=== PATIENT | male | born 1950 | race Caucasian/White ===

== ENCOUNTER 2017-02-17 13:28 | Inpatient (IN) | payer OTHER, MEDICARE ==
[~2017-02-17] VITALS: Ht 177.8 cm; Wt 101.9 kg
[2017-02-17 14:16] VITALS: PULSE 99
[2017-02-17] MEDS ORDERED: Polyethylene Glycol (PEG) 17 Gm Powder PO PRN (14:55)
[2017-02-17] MEDS ORDERED: Alum-Mag Hydrox-Simeth 30 mL Suspension PO PRN (14:55)
[2017-02-17] MEDS ORDERED: Ondansetron 2 mg/mL 2 mL Inj IVPUSH PRN (14:55)
[2017-02-17] MEDS ORDERED: MULT1CAP33 PO (15:25)
[2017-02-17 15:30] VITALS: BP 134/78; PULSE 95; RESP 16; O2SAT 97
[2017-02-17 15:40] LABS: INR 1.32 ratio
[2017-02-17 15:46] LABS: TROPONIN T < 0.010 ug/L (0.0-0.011)
[2017-02-17 16:12] LABS: Lipase 20 U/L (13-60)
[2017-02-17] MEDS: Sodium Chloride LOK Flush 10 mL Syringe IVFLUSH SCH ×2 (16:38→23:23)
--- NOTE | 2017-02-17 16:51 | DRSVH ---
PROCEDURE: X-RAY CHEST, TWO VIEWS ([id number]) INDICATIONS: Chest pain. TECHNIQUE: Two views of the chest were acquired. COMPARISON: None. FINDINGS: Surgical Changes and Devices: None. Lungs and Pleura: No pleural effusions or pneumothorax. Lungs are clear. Mediastinum: Mediastinal contours are normal. Heart size is normal. Hilar calcified nodes present. Bones and Chest Wall: No suspicious bony abnormalities. Soft tissues appear unremarkable. IMPRESSION: 1. No acute cardiopulmonary disease. 2. Hilar calcifications present, related to remote granulomatous disease. Dictated by: Quincy Morales [facility] Interpreted: Savannah Batres MD on 02/17/2017 at 15:58 Transcribed by: GRACIELA on 02/17/2017 at 19:51 Approved by: Savannah Batres MD, PhD on 02/17/2017 at 18:48
--- NOTE | 2017-02-17 17:28 | PCM.CHPMED ---
Subjective Date of Service: Feb 17, 2017 Primary Physician: Admitting Physician: Tamiko Foster DO Primary Care Physician: Qiana Attending Physician: Tamiko Foster DO Admit Status: From the Emergency Department Chief Complaint: Chief Complaint: Reason for consultation: thrombosis of portal veins History of Present Illness: GASTROENTEROLOGY CONSULTATION: Mr. Abhijeet Sanchez is a pleasant 66 yo man with no significant PMH who was sent to the hospital by for thrombosis of portal veins. He reports 1-week history of nausea, poor appetite, and generalized weakness. He denies any vomiting, hematemesis, melena, hematochezia, CP, SOB, dizziness, headach, fever , or chills. Patient states that he probably lost about 10 lbs in the last week due to the poor appetite. He has regular BM with darker brown stool, but never black or bloody. Patient also admits to mild RUQ abdominal pain that is dull and nonradiating. The abdominal pain has been intermittent for the last 2 months , but he does not think much of it. No aggravating or relieving factor. He has never experienced anything like this in the past. Patient states that he has been pretty healthy and has not seen any doctor for years. He denies history of smoking or drug use. He drinks 1-2 beers per week. He takes Advil occasionally for ache and pain, but not on a regular basis. Patient has never has any surgery or colonoscopy. He does not take any medication other than a multivitamin daily. No recent blood works until today. He denies any family history of liver/colon/gastric cancer. No recent travel or trauma. At the urgent care visit today, patient had an abdominal U/S that showed thrombosis of portal veins distal to the kendra hepatis. There is also hypoechoic irregular focus involving the peripheral right hepatic lobe. Cholelithiasis was visualized without evidence for cholecystitis. His labs were significant for low hemoglobin of 12.1. Normal platelet of 254, but prolonged PT 14.2 and INR 1.32. CMP is significant for low Na 131, AST 56, ALT 88, Alk Phos 193. Normal total bilirubin of 1.1 and normal BUN/Cr. GI service was consulted for further investigation of the portal vein thrombosis. Review of Systems: Constitutional: Reports: Weakness, Denies: Chills, Fever, Sweats Eyes: Denies: Blurred Vision, Double Vision, Pain Cardiovascular: Denies: Chest Pain, Edema, Irregular Heart Rate, Palpitations, Rapid Heart Rate, SOB on Exertion Respiratory: Denies: Cough, Cough with bloody sputum, SOB with Exertion, Shortness of Breath Gastrointestinal: Reports: Abdominal Pain (RUQ), Change in Appetite (decreased) , Nausea, Denies: Black tarry stools, Blood in stool (red), Constipation, Diarrhea, Heartburn, Vomiting Genitourinary: Denies: Change in Frequency, Decrease Urinary Stream, Dysuria, Hematuria, No burning or pain with urination, Nocturia Skin: Denies: Blisters, Bruising, Dry or Flakiness, Itching Neurological: Denies: Change in LOC, Change in Speech, Confusion, Difficulty Walking, Dizziness, Numbness Psychologic: Denies: Anxiety, Depression, Insomnia Hematologic: Denies: Abnormal Bleeding, Bruising PMH Past Medical History None per the patient Surgical History None per the patient Home Medications A Multivitamin daily Allergies: Coded Allergies: No Known Allergies (Unverified , 02/17/17) Family History Family History Father from a heart attack in his 70s. Mother is healthy and alive in her 90s. No family history of colon/gastric/liver cancer. Social History Hx Alcohol Use: Yes (1-2 beers per week)Alcoholic Drinks Per Day: 0-1Hx Substance Use: NoHx Tobacco Use: No Smoking Status: Never Smoker Living Arrangement: with Family Exam Vital Signs Vital Sign - Last Date Time Temp Pulse Resp B/P Pulse Ox O2 Delivery O2 Flow Rate FiO2 02/17/17 15:30 36.9 95 16 134/78 97 Room Air General: Alert, Oriented X3, Cooperative, No Acute Distress Head: Normal Eyes: PERRLA, EOMI, Scleral Anicteric Neck: Supple, No Thyromegaly Chest & Lungs: Chest Wall Normal, Clear to auscultation & percussion, No adventitious breath sounds Cardiovascular: Exam Unremarkable, Regular Rate/Rhythm, Normal S1, Normal S2, No Murmurs/Rubs/Gallops Abdomen: Tender (mild tenderness to palpation in the RUQ. No guarding or rebound tenderness. ), Non-distended, No hepatosplenomegaly, Normoactive bowel tones, Soft Musculoskeletal: Unremarkable Extremities: No cyanosis/clubbing/edma bilat, Normal bilaterally, Warm Skin: Other (No petechiae or rash noted) Neurological: Grossly Neurologically Intact, Normal Speech, Sensation Intact Assessment & Plan Assessment This is a 66 yo man with no significant PMH who was sent to the hospital by urgent care for thrombosis of portal veins. He presents with 2-month history of dull RUQ abdominal pain and 1-week history of nausea, poor appetite, and generalized weakness. He has not seen a doctor for over 40 years and denies any significant medical issue. He was seen at today and was found to have thrombosis of portal veins on the U/S today. There is also hypoechoic irregular focus of the right hepatic lobe that could be suspicious for mass. Otherwise, patient has no risk factor for developing thrombosis. He denies recent travel, trauma, or history of abdominal surgery. There is no evidence of pancreatitis. Potential causes of portal vein thrombosis include hepatocellular carcinoma, colon cancer, IBD, myeloproliferative syndromes, or thrombophilias. Problems: 1. Thrombosis of portal veins. 2. Normocytic anemia, unknown chronicity. 3. Elevated LFTs. 4. PT prolongation. Recommendations: - Can advance diet as tolerated. - We recommend an abdominal CT with contrast to confirm the portal vein thrombosis as well as ruling out hepatic cellular carcinoma. - Will check AFP. - If the CT is nondiagnostic, patient will need to have a colonoscopy to rule out malignancy and possibly an abdominal MRI as well. [place] of the colonoscopy was discussed with the patient and his and they agreed to proceed. - Hepatitis panel are pending. If negative, will consider autoimmune hepatitis workup. - If all these studies are normal, patient will likely need a hematology consult. - Will hold off on starting Heparin until we get the CT result. - Continue to monitor CBC daily. Thank you for allowing us to participate in this patient's care. Do not hesitate to contact us for any question or concern. Problems: Pain Evaluation: Adequate Pain Control GI Prophylaxis: Proton Pump Inhibitor Resuscitation Status: CPR: Attempt Resuscitation Attending Statement pt seen and examined with resident physician I agree with her note above 66 y/o man with no pmhx presenting with RUQ pain and elevated LFT. review of ct scan results reveals multiple hypodensities in the lver , recommend MRI to further evaluate. Discussed with primary team about obtaining MRI of liver and then possibly endoscpy to evaluate for possible underlying neoplasm. anticoagulatio has been started by primary team cont to follow LFT's /PT and INR Skip Thibodeaux DO Feb 17, 2017 17:28 Mark Woods MD Feb 17, 2017 22:47
--- NOTE | 2017-02-17 19:12 | NUR ---
Admit Pt arrived around 1500 to the unit with at the bedside. A&O X3. Answers questions appropriately and able to make needs known. Lungs clear, no c/o SOB or dyspnea. No abd tenderness. Bowel tones hyperactive throughout. Last BM today. Voiding without issues. independently ambulatory with no issues. Per MD order, dinner tray ordered for patient. Telemetry leads placed. IV saline locked in the L hand.
[2017-02-17 19:19] VITALS: BP 146/67; PULSE 82; RESP 17; O2SAT 93
[2017-02-17 19:56] LABS: APPEARANCE,URINE CLEAR (CLEAR,HAZY); COLOR,URINE DARK YELLOW (YELLOW); OCCULT BLOOD,URINE TRACE (NEGATIVE); PH,URINE 5.5 (5.0-8.0); UROBILINOGEN,URINE 8 mg/dL (NORMAL)
--- NOTE | 2017-02-17 19:58 | DRSVH ---
PROCEDURE: CT ABDOMEN AND PELVIS WITH CONTRAST ([id number]) INDICATIONS: portal vein throbosis on u/s TECHNIQUE: After the administration of intravenous contrast, 5 mm thick sections acquired from the diaphragm to the symphysis. 5 mm coronal and sagittal reformats were acquired. For radiation dose reduction, the following was used: automated exposure control, adjustment of mA and/or kV according to patient shoaib herron. COMPARISON: [facility], US, US ABD DOPPLER, 02/17/2017, 11:05. FINDINGS: Image quality: Excellent. ABDOMEN: Lung bases: Lung bases are clear. Heart size is normal. Solid organs: Liver and spleen are normal in size. There are multifocal patchy low density foci with in the right hepatic lobe, largest of which measures roughly 20 mm. Scattered splenic calcifications are present. Gallbladder demonstrates calculi within its lumen Biliary system is non dilated. Pancre as enhances normally. No adrenal nodules. Kidneys demonstrate normal size and enhancement, without hydronephrosis. Nonobstructing 3 mm diameter calculus in the inferior pole right kidney. Peritoneum and bowel: Bowel loops demonstrate normal wall thickness and caliber. No free fluid or a ir. Diverticulosis of the descending and sigmoid colon. Nodes and vessels: There is thrombus seen within the left lobe branch of the pulmonary vein, as well as the right hepatic lobe superior branch of the portal vein. There is intact flow seen within the r ight inferior portal vein branch. No retroperitoneal or mesenteric adenopathy by size criteria. Aort a and inferior vena cava are normal in size. Miscellaneous: No ventral hernias. PELVIS: Genitourinary: Bladder wall thickness is normal. Miscellaneous: No inguinal hernias or adenopathy. Bones: No suspicious bony lesions. No vertebral body compression fractures. IMPRESSION: 1. Portal vein thrombosis as described above, with sparing of the right inferior hepatic branch. 2. Multifocal low density foci within the right hepatic lobe, possibly related to infarcts, abscesses , or neoplasm. 3. Cholelithiasis. 4. Remote granulomatous disease. 5. Small nonobstructing right inferior pole nephrolith. Dictated by: Benigno Camarena M.D. on 02/17/2017 at 19:47 Approved by: Benigno Camarena M.D. on 02/17/2017 at 19:56
[2017-02-17 20:00] VITALS: PULSE 81
--- NOTE | 2017-02-17 20:27 | PCM.HPMED ---
Subjective Date of Service Feb 17, 2017 Primary Provider: Admitting Physician: Tamiko Foster DO Primary Care Physician: Nopvickie Attending Physician: Tamiko Foster DO Chief Complaint: Portal vein thrombosis History of Present Illness: Mr. Nhung Velazquez is a pleasant 66 yo man with particular medical follow-up who was sent to the hospital by for thrombosis of portal veins. He reports 1- week history of nausea, poor appetite, and generalized weakness. He denies any vomiting, hematemesis, melena, hematochezia, CP, SOB, dizziness, headach, fever , or chills. He has regular BM. Patient also admits to mild RUQ abdominal pain. No aggravating or relieving factor. He has never experienced anything like this in the past. Patient states that he has been pretty healthy and has not seen any doctor for years. He denies history of smoking or drug use. He drinks 1-2 beers per week. No recent blood works until today. He denies any family history of cancer. At the urgent care visit today, patient had an abdominal U/S that showed thrombosis of portal veins distal to the kendra hepatis. There is also hypoechoic irregular focus involving the peripheral right hepatic lobe. Cholelithiasis was visualized without evidence for cholecystitis. His labs were significant for low hemoglobin of 12.1. Normal platelet of 254, but prolonged PT 14.2 and INR 1.32. CMP is significant for low Na 131, AST 56, ALT 88, Alk Phos 193. Normal total bilirubin of 1.1 and normal BUN/Cr. In the room patient is saying he is hungry and would like to eat. He is not currently nauseated. He also does not have any pain currently. He states his pain is 0 out of 10 now versus then it is at its worst three out of 10. He took Tylenol at home but did not help. Patient is admitted to the [place] team for portal vein thrombosis likely secondary to hepatitis versus hepatocellular carcinoma. Review of Systems: All review of systems negative except as stated above Allergies Coded Allergies: No Known Allergies (Unverified , 02/17/17) Home Medications None PMH None Surgical History None Family History Remarkable for dad with heart disease brother with heart disease Mother is healthy Social History Occupation: Works at [employer] Hx Alcohol Use: No Hx Substance Use: No Hx Tobacco Use: No Living Arrangement: with Family Exam Vital Signs Vital Sign - Last Date Time Temp Pulse Resp B/P Pulse Ox O2 Delivery O2 Flow Rate FiO2 02/17/17 14:16 99 Exam Gen.: No acute distress laying in bed immediate noticeable large abdominal girth HEENT: Normocephalic, atraumatic Heart: Regular rate and rhythmwithout murmurs Lungs clear to auscultation or wheezes Abdomen: Soft large but nondistended normal bowel sounds negative for tenderness Extremities: Negative for edema Psych: Negative for anxiety Neuro: No focal deficits , Lab and Diagnostics Labs Laboratory Tests 72 Hours Test 02/17/17 15:15 02/17/17 19:34 Prothrombin Time 14.2sec (8.1-12.5) Prothromb Time International Ratio 1.32ratio Activated Partial Thromboplast Time 34.1sec (22.8-33.0) Magnesium Level 2.0mg/dL (1.6-2.6) Troponin T < 0.010ug/L (0.0-0.011) Amylase Level 27U/L (28-100) Lipase 20U/L (13-60) Hold [place]abrese Top Tube Received (Received) Hepatitis C Comment . Urine Color Dark yellow (YELLOW) Urine Appearance Clear (CLEAR,HAZY) Urine pH 5.5 (5.0-8.0) Urine Specific [place] 1.020 (1.003-1.035) Urine Protein Tracemg/dL (NEG,TRACE) Urine Glucose (UA) Negativemg/dL (NEGATIVE) Urine Ketones Negativemg/dL (NEGATIVE) Urine Occult Blood Trace (NEGATIVE) Urine Nitrite Negative (NEGATIVE) Urine Bilirubin Negative (NEGATIVE) Urine Urobilinogen 8mg/dL (NORMAL) Urine Leukocyte Esterase Negative (NEGATIVE) Urine RBC 0-2/hpf (0-2) Urine WBC 0-5/hpf (0-5) Urine Epithelial Cells Occasional/hpf (NONE-MOD) Urine Crystals None seen (NONE SEEN) Urine Bacteria Few/hpf (NONE-FEW) Urine Hyaline Casts None/lpf (NONE) Urine Granular Casts None seen (NONE SEEN) Urine Waxy Casts None seen (NONE SEEN) Urine Red Blood Cell Casts None seen (NONE SEEN) Urine White Blood Cell Casts None seen (NONE SEEN) Urine Mucus Present (None Seen) Urine Trichomonas None seen (NONE SEEN) Urine Yeast None (NONE SEEN) Urinalysis Comment None Urine Culture Reflexed Not indicated X-Rays, CTs and MRIs [facility] Diagnostic Imaging Department [place], [place] [id number] Patient Name: NHUNG VELAZQUEZ MR#: [id number] Location: [facility] Ordering Phys: Tamiko Foster DO Date of Service: 02/17/17 1503 PROCEDURE: CT ABDOMEN AND PELVIS WITH CONTRAST ([id number]) INDICATIONS: portal vein throbosis on u/s TECHNIQUE: After the administration of intravenous contrast, 5 mm thick sections acquired from the diaphragm to the symphysis. 5 mm coronal and sagittal reformats were acquired. For radiation dose reduction, the following was used: automated exposure control, adjustment of mA and/or kV according to patient size. COMPARISON: [facility], US, US ABD DOPPLER, 02/17/2017, 11:05. FINDINGS: Image quality: Excellent. ABDOMEN: Lung bases: Lung bases are clear. Heart size is normal. Solid organs: Liver and spleen are normal in size. There are multifocal patchy low density foci within the right hepatic lobe, largest of which measures roughly 20 mm. Scattered splenic calcifications are present. Gallbladder demonstrates calculi within its lumen Biliary system is non dilated. Pancreas enhances normally. No adrenal nodules. Kidneys demonstrate normal size and enhancement, without hydronephrosis. Nonobstructing 3 mm diameter calculus in the inferior pole right kidney. Peritoneum and bowel: Bowel loops demonstrate normal wall thickness and caliber. No free fluid or air. Diverticulosis of the descending and sigmoid colon. Nodes and vessels: There is thrombus seen within the left lobe branch of the pulmonary vein, as well as the right hepatic lobe superior branch of the portal vein. There is intact flow seen within the right inferior portal vein branch. No retroperitoneal or mesenteric adenopathy by size criteria. Aorta and inferior vena cava are normal in size. Miscellaneous: No ventral hernias. PELVIS: Genitourinary: Bladder wall thickness is normal. Miscellaneous: No inguinal hernias or adenopathy. Bones: No suspicious bony lesions. No vertebral body compression fractures. IMPRESSION: 1. Portal vein thrombosis as described above, with sparing of the right inferior hepatic branch. 2. Multifocal low density foci within the right hepatic lobe, possibly related to infarcts, abscesses, or neoplasm. 3. Cholelithiasis. 4. Remote granulomatous disease. 5. Small nonobstructing right inferior pole nephrolith. Dictated by: Benigno Camarena M.D. on 02/17/2017 at 19:47 Approved by: Benigno Camarena M.D. on 02/17/2017 at 19:56 [facility] Diagnostic [place] [address] Patient Name: NHUNG VELAZQUEZ MR#: [id number] Location: [facility] Ordering Phys: Tamiko Foster DO Date of Service: 02/17/17 1451 PROCEDURE: X-RAY CHEST, TWO VIEWS ([id number]) INDICATIONS: Chest pain. TECHNIQUE: Two views of the chest were acquired. COMPARISON: None. FINDINGS: Surgical Changes and Devices: None. Lungs and Pleura: No pleural effusions or pneumothorax. Lungs are clear. Mediastinum: Mediastinal contours are normal. Heart size is normal. Hilar calcified nodes present. Bones and Chest Wall: No suspicious bony abnormalities. Soft tissues appear unremarkable. IMPRESSION: 1. No acute cardiopulmonary disease. 2. Hilar calcifications present, related to remote granulomatous disease. Dictated by: Quincy Morales RRA Interpreted: Savannah Batres MD on 02/17/2017 at 15:58 Transcribed by: GRACIELA on 02/17/2017 at 19:51 Approved by: Savannah Batres MD, PhD on 02/17/2017 at 18:48 12-lead ECG Re: Result pending Assessment & Plan Acute diagnosis #1 portal venous anastomosis secondary to hepatocellular carcinoma versus hepatitis versus autoimmune etiologies, pancreatitis, Budd-Chiari syndrome, , IBD, -- GGT, amylase, lipase, PTT, INR lab work -- A negative flex panel, hepatitis panel are ordered -- AFP ordered by the GI -- GI is consulted: We will see the patient, we appreciate the recommendations -- We will give him low fat diet for tonight, nothing by mouth overnight -- Morphine IV small dose for pain control -- Protonix for GI prophylaxis -- Zofran for nausea -- May take ibuprofen, avoid Tylenol -- The patient has no ascites -- GI Recs:"If the CT is nondiagnostic, patient will need to have a colonoscopy to rule out malignancy and possibly an abdominal MRI as well. [place] of the colonoscopy was discussed with the patient and his and they agreed to proceed. - Hepatitis panel are pending. If negative, will consider autoimmune hepatitis workup. - If all these studies are normal, patient will likely need a hematology consult. - Will hold off on starting Heparin until we get the CT result." -- Daily lab work Patient has no chronic conditions. CODE STATUS: Full code Alternate decision-maker: IV fluid: Hep-Lock Pain Evaluation: Adequate Pain Control GI Prophylaxis: Proton Pump Inhibitor VTE Prophylaxis: SCDs, Other (Will discuss anticoagulation with GI) Resuscitation Status: CPR: Attempt Resuscitation Tamiko Foster DO Feb 17, 2017 15:17
[2017-02-17] MEDS ORDERED: Heparin 25K Unit/500mL 0.45 NS 25,000 UNIT in IV Premix 1 EACH IV SCH (20:55)
[2017-02-17] MEDS ORDERED: Heparin 5,000 Unit/mL Inj IVPUSH PRN (20:55)
[2017-02-17] MEDS ORDERED: Heparin 5,000 Unit/mL Inj SUBQ SCH (21:00)
[2017-02-17] MEDS ORDERED: Heparin 5,000 Unit/mL Inj IVPUSH ONE (21:10)
--- NOTE | 2017-02-17 21:25 | NUR ---
temp pt with a fever of 38.6 oral called ordered tylenol gave Temp resolved
--- NOTE | 2017-02-17 22:30 | NUR ---
off floor pt went down for CT of abd once back on floor called and wanted pt to go to MRI with and without contrast tonight, pt left and back tolerating well. pt denies any CP
[2017-02-17] MEDS: 0.9% Sodium Chloride 1,000 ML IV SCH (22:53)
[2017-02-17 23:23] VITALS: BP 114/65; PULSE 64; RESP 18; O2SAT 95
[2017-02-18] VITALS (8 sets, daily range): BP systolic 114–124; BP diastolic 61–70; PULSE 66–82; RESP 17–18; O2SAT 93–95
--- NOTE | 2017-02-18 00:13 | NUR ---
IVF/heparin gtt started pt on NS at 100cc/hr and heparin gtt per DVT protocol, gave 8000unit heparin bolus and started gtt at 18units/kg(99.8kg)/hr
[2017-02-18 04:52] LABS: BASOPHILS % (AUTO) 0.1 % (0-3); EOSINOPHILS % (AUTO) 0.2 % (0-5); MONOCYTES % (AUTO) 5.7 % (4-12); Mean Corpuscular Volume 85.1 fL (81-100); NEUTROPHILS % (AUTO) 87.8 % (40-74); Platelet Count 154 bil/L (150-400)
[2017-02-18 05:04] LABS: INR 1.28 ratio
--- NOTE | 2017-02-18 05:32 | NUR ---
heparin gtt PTT 38 gave heparin bolus 25units/kg = 2500units heparin and increased heparin gtt by 2units/kg/hr new rate 20units/kg/hr next PTT 1030
--- NOTE | 2017-02-18 06:04 | NUR ---
NPO/heparin gtt Dr. Arie Foster called and wanted heparin gtt off at 0600 and pt to be NPO. heparin gtt stopped and NPO explained to pt
[2017-02-18 07:15] LABS: Hepatitis A Antibody IgM Negative (Negative); Hepatitis B Core Antibody IgM Negative (Negative)
[2017-02-18 08:12] LABS: Gamma Glutamyl Transpeptidase 128 IU/L (0-65)
[2017-02-18] MEDS: Sodium Chloride LOK Flush 10 mL Syringe IVFLUSH SCH ×3 (08:30→23:44)
[2017-02-18] MEDS: 0.9% Sodium Chloride 1,000 ML IV SCH ×3 (09:08→19:50)
--- NOTE | 2017-02-18 10:25 | PCM.PNMED ---
Subjective Date of Service Feb 18, 2017 Subjective GASTROENTEROLOGY PROGRESS NOTE: Patient reports improvement of his abdominal pain, but still has intermittent nausea. He also had a fever up to 38.2 last night that resolved with Tylenol. Otherwise, he denies any other complaint. No vomiting, hematemesis, diarrhea, headache, CP, or SOB. Patient's hemoglobin dropped to 10.5 from 12.1 yesterday. His Platelet also decreased to 154 from 254. Exam Vital Signs Vital Sign - Last Date Time Temp Pulse Resp B/P Pulse Ox O2 Delivery O2 Flow Rate FiO2 02/18/17 08:28 37.7 69 18 114/65 94 Room Air Intake and Output 02/17/17 02/17/17 02/18/17 Cumulative From/Thru 15:00 23:00 07:00 02/17/17 15:30 - 02/18/17 06:05 Intake Total 400 ml 2022 ml 2422 ml Output Total 2350 ml 2350 ml Balance 400 ml -328 ml 72 ml Intake Oral 400 ml 1036 ml 1436 ml IV Total 986 ml 986 ml Output Urine Total 2350 ml 2350 ml Exam General: Alert, Oriented X3, Cooperative, No Acute Distress Head: NCAT, EOMI, Scleral Anicteric, Membrane moist. Neck: Supple, No Thyromegaly Chest & Lungs: Chest Wall Normal, Clear to auscultation & percussion, No adventitious breath sounds Cardiovascular: Exam Unremarkable, Regular Rate/Rhythm, Normal S1, Normal S2, No Murmurs/Rubs/Gallops Abdomen: Soft, nondistended, moderate tenderness to palpation in the epigastric and RUQ. No guarding or rebound tenderness. No hepatosplenomegaly. Normoactive bowel tones. Musculoskeletal: Unremarkable Extremities: No cyanosis/clubbing/edma bilat, Normal bilaterally, Warm Skin: No petechiae or rash noted Neurological: Grossly Neurologically Intact, Normal Speech, Sensation Intact IVs and Medications Medications Reviewed: Medications were reviewed in detail Lab and Diagnostics Result Diagram: 02/18/1741602/18/17416 X-Rays, CTs and MRIs PROCEDURE: MRI ABDOMEN WITH AND WITHOUT CONTRAST IMPRESSION: 1. As discussed above there is a high likelihood of infiltrative hepatoma involving the superior aspect of the right posterior hepatic segment with secondary tumor infiltration into the portal vein radicals in that area, and then tumor infiltration extending retrograde through these vessels into the portal vein branches more centrally. The presence of tumor infiltration is considered more likely than infection as the underlying cause due to both the elevated diffusion signal present in these areas and the enlargement of the portal veins both peripherally and centrally associated with this abnormality over a relatively wide area. If infection was present it should be clinically evident given the extent of disease found. 2. Gallstones within the gallbladder lumen present, without evidence of associated biliary obstruction or gallbladder inflammation. 3. The documentation of tumor infiltration likely could be established utilizing ultrasound guided biopsy of the left main portal vein thrombus near the liver midline, utilizing core biopsy technique or cytology aspiration. Core biopsy technique would be preferable if possible. Note: Findings called to the medical staff caring for the patient. Dictated by: Alon Ba M.D. on 02/18/2017 at 11:06 Approved by: Alon Ba M.D. on 02/18/2017 at 11:32 PROCEDURE: CT ABDOMEN AND PELVIS WITH CONTRAST IMPRESSION: 1. Portal vein thrombosis as described above, with sparing of the right inferior hepatic branch. 2. Multifocal low density foci within the right hepatic lobe, possibly related to infarcts, abscesses, or neoplasm. 3. Cholelithiasis. 4. Remote granulomatous disease. 5. Small nonobstructing right inferior pole nephrolith. Dictated by: Benigno Camarena M.D. on 02/17/2017 at 19:47 Approved by: Benigno Camarena M.D. on 02/17/2017 at 19:56 PROCEDURE: X-RAY CHEST, TWO VIEWS IMPRESSION: 1. No acute cardiopulmonary disease. 2. Hilar calcifications present, related to remote granulomatous disease. Dictated by: Quincy Morales [facility] Interpreted: Savannah Batres MD on 02/17/2017 at 15:58 Transcribed by: GRACIELA on 02/17/2017 at 19:51 Approved by: Savannah Batres MD, PhD on 02/17/2017 at 18:48 Assessment & Plan This is a 66 yo man with no significant PMH who was sent to the hospital by urgent care for thrombosis of portal veins. He presents with 2-month history of dull RUQ abdominal pain and 1-week history of nausea, poor appetite, and generalized weakness. He has not seen a doctor for over 40 years and denies any significant medical issue or risk factors for thrombosis. He was seen at on and was found to have thrombosis of portal veins on the U/S. There is also hypoechoic irregular focus of the right hepatic lobe that could be suspicious for malignancy. Abdominal CT revealed multiple hypodensities in the liver and MRI indicated high likelihood of infiltrative hepatoma involving the superior aspect of the right posterior hepatic segment with secondary tumor infiltration into the portal vein radicals in that area, and then tumor infiltration extending retrograde through these vessels into the portal vein branches more centrally. The presence of tumor infiltration is considered more likely than infection as the underlying cause due to both the elevated diffusion signal present in these areas and the enlargement of the portal veins both peripherally and centrally associated with this abnormality over a relatively wide area. If infection was present it should be clinically evident given the extent of disease found. Problems: 1. 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 2. Normocytic anemia, unknown chronicity. Recommendations: - We can advance the diet as tolerated from the GI perspective and perhaps NPO after midnight to prepare for the biopsy tomorrow. We will defer this to the primary care team. - We recommend to consult IR for a liver biopsy. Oncology should also be consulted. - Negative hepatitis panel. Tumor marker AFP pending. - Continue to monitor CBC, LFTs, PT/INR. - We recommend to hold off on anticoagulation as hepatic hemorrhage is common in liver mass. - Patient was advised to have a screening colonoscopy as outpatient at some point in the future, but the workups for the hepatic mass should be his priority now. Thank you for allowing us to participate in this patient's care. We will off at this point. Do not hesitate to contact us for any question or concern. Pain Evaluation: Adequate Pain Control GI Prophylaxis: Proton Pump Inhibitor VTE Prophylaxis: SCDs Resuscitation Status: CPR: Attempt Resuscitation Attending Statement Pt seen and examined with resident physician MRI findings reviewed, findings consistent with Hepatoma, Hep B serologies negative and no evidence of cirrhosis based on imaging. AFP pending agree with liver biopsy which is scheduled for tomorrow. will hold off on endoscopy until biopsy results Skip Thibodeaux DO Feb 18, 2017 10:25 Mark Woods MD Feb 18, 2017 21:24 -- AFP ordered by the GI -- GI is consulted: We will see the patient, we appreciate the recommendations -- We will give him low fat diet for tonight, nothing by mouth overnight -- Morphine IV small dose for pain control -- Protonix for GI prophylaxis -- Zofran for nausea -- May take ibuprofen, avoid Tylenol -- The patient has no ascites -- GI Recs:"If the CT is nondiagnostic, patient will need to have a colonoscopy to rule out malignancy and possibly an abdominal MRI as well. [place] of the colonoscopy was discussed with the patient and his and they agreed to proceed. - Hepatitis panel are pending. If negative, will consider autoimmune hepatitis workup. - If all these studies are normal, patient will likely need a hematology consult. - Will hold off on starting Heparin until we get the CT result." -- Daily lab work Patient has no chronic conditions. CODE STATUS: Full code Alternate decision-maker: IV fluid: Hep-Lock GI Prophylaxis: Proton Pump Inhibitor VTE Prophylaxis: SCDs, Other (Will discuss anticoagulation with GI) Resuscitation Status: CPR: Attempt Resuscitation Skip Thibodeaux DO Feb 18, 2017 10:25
[2017-02-18] MEDS: Pantoprazole 40 mg ER24 Tablet PO SCH (11:14)
--- NOTE | 2017-02-18 11:49 | DRSVH ---
PROCEDURE: MRI ABDOMEN WITH AND WITHOUT CONTRAST ([id number]) INDICATIONS: Abdominal pain, Evaluate for hepatic neoplasm TECHNIQUE: Coronal HASTE, axial 2D FLASH in- and [id number]; axial breath-hold T2 FSE. Dynamic axial VIBE dur ing the administration of contrast; post-contrast coronal VIBE or 2D FLASH with fat saturation from t he hepatic dome to the iliac crests. Optional diffusion weighted imaging and ADC was performed. Con trast agent utilized was Eovist for both early vascular phase of contrast enhancement and later hepat ocellular phase of contrast excretion imaging. COMPARISON: [facility], US, US ABD DOPPLER, 02/17/2017, 11:05. [facility], C T, CT ABD PELVIS W CON, 02/17/2017, 19:34. FINDINGS: Image quality: Excellent. Lung bases: No basal pleural effusions. Heart size is normal. Solid organs: Liver and spleen are normal in size and the spleen is normal in enhancement. The live r, however, demonstrates heterogeneous enhancement within the right posterior hepatic segment posteri justin, superiorly, and from that area there appears to be multifocal vascular involvement by a disease process worrisome for representing tumor infiltration into the portal venous structures of the liver parenchyma. At least one area of mildly enlarged portal vein involvement tracks inferiorly into the right posterior hepatic segment portal vein, superiorly, and then into the right main portal vein an d retrograde into the main portal vein and left portal vein. It also infiltrates into the right ante rior portal vein at the middle and upper thirds of the liver parenchyma. In this area the vascular i nvolvement within the liver parenchyma is associated with enlargement of the portal veins, and also w hat appears to be cavernous transformation of mildly prominent arterial vessels along the portal vein margins. The appearance is associated with abnormal elevation of diffusion signal in the areas of a bnormal liver parenchyma and vascular involvement. These findings, combined, please a high degree of concerned that infiltrative hepatoma is present within the right posterior hepatic segment superiorl y and has infiltrated into the portal venous structures causing tumor thrombus. Note is made of perf usion heterogeneity involving the right posterior hepatic segment inferior half which maintains some degree of normal portal vein flow despite presence of partial thrombus within that vessel (series 7 i mage 48). Gallbladder contains no inflammation but does contain previously identified calcified gallstone seen by CT scan also. Biliary system is non dilated. Pancreas is normal in morphology. No adrenal nodul es. Both kidneys demonstrate normal size and enhancement, without hydronephrosis. Nodes and vessels: No retroperitoneal or mesenteric adenopathy by size criteria. Aorta and inferior vena cava are normal in size. Bowel and peritoneum: Unenhanced bowel loops are normal in caliber. No free fluid. Bones and soft tissues: No ventral hernias. Bone marrow is normal in overall signal. IMPRESSION: 1. As discussed above there is a high likelihood of infiltrative hepatoma involving the superior asp ect of the right posterior hepatic segment with secondary tumor infiltration into the portal vein rad icals in that area, and then tumor infiltration extending retrograde through these vessels into the p ortal vein branches more centrally. The presence of tumor infiltration is considered more likely adelita n infection as the underlying cause due to both the elevated diffusion signal present in these areas and the enlargement of the portal veins both peripherally and centrally associated with this abnormal ity over a relatively wide area. If infection was present it should be clinically evident given the extent of disease found. 2. Gallstones within the gallbladder lumen present, without evidence of associated biliary obstructi on or gallbladder inflammation. 3. The documentation of tumor infiltration likely could be established utilizing ultrasound guided b iopsy of the left main portal vein thrombus near the liver midline, utilizing core biopsy technique o r cytology aspiration. Core biopsy technique would be preferable if possible. Note: Findings called to the medical staff caring for the patient. Dictated by: Alon Ba M.D. on 02/18/2017 at 11:06 Approved by: Alon Ba M.D. on 02/18/2017 at 11:32
--- NOTE | 2017-02-18 15:14 | PCM.PNMED ---
Subjective Date of Service Feb 18, 2017 Subjective Patient is seen and examined, called Dr. Reese oncology, he is aware, called IR for a biopsy. Dr. Camarena will do the biopsy. Pt is currently off anticoag, since 6AM, he is on clears. Dr. Reese advices us to continue anticoagulation unless active bleeding is noted. We discussed the diagnosis with patient,. Patient and are trying to deal with it the best they can. Onc will see the patient as soon as the tissue biopsy result is available. Patient denies intense pain and nausea, tolerating clear liquid diet. No other concerns are expressed Exam Vital Signs Vital Sign - Last Date Time Temp Pulse Resp B/P Pulse Ox O2 Delivery O2 Flow Rate FiO2 02/18/17 13:01 37.2 74 18 121/70 94 Room Air Intake and Output 02/17/17 02/17/17 02/18/17 Cumulative From/Thru 15:00 23:00 07:00 02/17/17 15:30 - 02/18/17 06:05 Intake Total 400 ml 2022 ml 2422 ml Output Total 2350 ml 2350 ml Balance 400 ml -328 ml 72 ml Intake Oral 400 ml 1036 ml 1436 ml IV Total 986 ml 986 ml Output Urine Total 2350 ml 2350 ml Exam General: NAD, laying in bed, some what dyspneic male HEENT: NCAT, poor dentition Eyes: [place] conjunctivae. No ptosis, PERRL Neck: No masses, trachea midline, no thyromegaly Lungs: CTA with normal respiratory effort, no crackles or wheezes CV: RRR, no murmurs/rubs/gallops, normal PMI GI: Soft, non-tender with no hepatosplenomegaly MSK: Normal gait and station, no digital cyanosis Skin: Warm and dry. No rash, lesions or ulcers Psych: A&O X3, with appropriate affect IVs and Medications IV Fluids NSS 100 cc/hr Medications Reviewed: Medications were reviewed in detail Lab and Diagnostics Result Diagram: 02/18/1741602/18/17416 X-Rays, CTs and MRIs Ordering Phys: Tamiko Foster DO Date of Service: 02/17/172053 PROCEDURE: MRI ABDOMEN WITH AND WITHOUT CONTRAST ([id number]) INDICATIONS: Abdominal pain, Evaluate for hepatic neoplasm IMPRESSION: 1. As discussed above there is a high likelihood of infiltrative hepatoma involving the superior aspect of the right posterior hepatic segment with secondary tumor infiltration into the portal vein radicals in that area, and then tumor infiltration extending retrograde through these vessels into the portal vein branches more centrally. The presence of tumor infiltration is considered more likely than infection as the underlying cause due to both the elevated diffusion signal present in these areas and the enlargement of the portal veins both peripherally and centrally associated with this abnormality over a relatively wide area. If infection was present it should be clinically evident given the extent of disease found. 2. Gallstones within the gallbladder lumen present, without evidence of associated biliary obstruction or gallbladder inflammation. 3. The documentation of tumor infiltration likely could be established utilizing ultrasound guided biopsy of the left main portal vein thrombus near the liver midline, utilizing core biopsy technique or cytology aspiration. Core biopsy technique would be preferable if possible. Note: Findings called to the medical staff caring for the patient. Dictated by: Alon Ba M.D. on 02/18/2017 at 11:06 Approved by: Alon Ba M.D. on 02/18/2017 at 11:32 Ordering Phys: Tamiko Foster DO Date of Service: 02/17/17 1503 PROCEDURE: CT ABDOMEN AND PELVIS WITH CONTRAST ([id number]) INDICATIONS: portal vein throbosis on u/s IMPRESSION: 1. Portal vein thrombosis as described above, with sparing of the right inferior hepatic branch. 2. Multifocal low density foci within the right hepatic lobe, possibly related to infarcts, abscesses, or neoplasm. 3. Cholelithiasis. 4. Remote granulomatous disease. 5. Small nonobstructing right inferior pole nephrolith. Dictated by: Benigno Camarena M.D. on 02/17/2017 at 19:47 Approved by: Benigno Camarena M.D. on 02/17/2017 at 19:56 Ordering Phys: Tamiko Foster DO INDICATIONS: Chest pain. TECHNIQUE: Two views of the chest were acquired. COMPARISON: None. IMPRESSION: 1. No acute cardiopulmonary disease. 2. Hilar calcifications present, related to remote granulomatous disease. Dictated by: Quincy LANGFORD Interpreted: Savannah Batres MD on 02/17/2017 at 15:58 Transcribed by: GRACIELA on 02/17/2017 at 19:51 Approved by: Savannah Batres MD, PhD on 02/17/2017 at 18:48 Assessment & Plan This is a 66 yo man with no significant PMH who was sent to the hospital by urgent care for thrombosis of portal veins. He presents with 2-month history of dull RUQ abdominal pain and 1-week history of nausea, poor appetite, and generalized weakness. He has not seen a doctor for over 40 years and denies any significant medical issue or risk factors for thrombosis. He was seen at on and was found to have thrombosis of portal veins on the U/S. There is also hypoechoic irregular focus of the right hepatic lobe that could be suspicious for malignancy. Abdominal CT revealed multiple hypodensities in the liver and MRI indicated high likelihood of infiltrative hepatoma involving the superior aspect of the right posterior hepatic segment with secondary tumor infiltration into the portal vein radicals in that area, and then tumor infiltration extending retrograde through these vessels into the portal vein branches more centrally. The presence of tumor infiltration is considered more likely than infection as the underlying cause due to both the elevated diffusion signal present in these areas and the enlargement of the portal veins both peripherally and centrally associated with this abnormality over a relatively wide area. If infection was present it should be clinically evident given the extent of disease found. Problems: 1. 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 -- GI is consulted. Recommended an MRI after reviewing the CT scan of the abdominal pelvic for better characterization of the hepatic findings.. MRA showed hepatic hepatoma "of infiltrative hepatoma involving the superior aspect of the right posterior hepatic segment with secondary tumor infiltration into the portal vein radicals in that area, and then tumor infiltration extending retrograde through these vessels into the portal vein branches more centrally. The presence of tumor infiltration is considered more likely than infection as the underlying cause due to both the elevated diffusion signal present in these areas and the enlargement of the portal veins both peripherally and centrally associated with this abnormality over a relatively wide area. If infection was present it should be clinically evident given the extent of disease found." -- GI is planning to do a colonoscopy and EGD, now they feel the tissue biopsy takes precedence over the need for colonoscopy and they cancelled the scope. GI has signed off we appreciate the recommendations -Oncology was contacted today on the phone spoke with Dr. Reese who is community relations officer, is encouraging an ER follow-up for biopsy , we will see the patient after the biopsy . Please place a formal consult tomorrow after the biopsy . -- Oncology also recommends anticoagulation with careful observation of H&H to ensure that tumor is not bleeding actively . Heparin drip was started earlier but stopped due to procedures , patient is not yet therapeutic. Today we will give him 1 time dose of heparin subcutaneous for prophylaxis only as he has been interventional radiology procedure tomorrow a.m.. -- Please restart the heparin drip protocol after the INR procedure tomorrow a.m. at 10 -- Followed oncology recommendations, biopsy results which might take a few days -- Hepatitis panel is ordered and negative. ALEX with reflex are impending. AFP is pending -- Follow CMP, CBC and PTT/INR Daily Patient is NPO for IR procedure tomorrow - 2. Normocytic anemia, unknown chronicity. -- Iron panel pending -- Followed with daily labs CODE STATUS: Full code Alternate decision-maker: Thank you for allowing us to participate in this patient's care. Do not hesitate to contact us for any question or concern. Pain Evaluation: Adequate Pain Control GI Prophylaxis: Proton Pump Inhibitor VTE Prophylaxis: SCDs, Other (Will discuss anticoagulation with GI) Resuscitation Status: CPR: Attempt Resuscitation Tamiko Foster DO Feb 18, 2017 15:14
--- NOTE | 2017-02-18 19:21 | NUR ---
GI/Ultrasound.. Pt has had no abdominal pain, nausea or emesis. Taking clear liquid diet without problem. UOP is dk louie QS. Was taken for abdominal US in department this afternoon. Pt will be having a Bx of the area of the portal vein tomorrow at 1000 in [place]. Pt and are aware this could be tumor in nature, support offered.
[2017-02-18] MEDS ORDERED: Heparin 25K Unit/500mL 0.45 NS 25,000 UNIT in IV Premix 1 EACH IV SCH (21:00)
[2017-02-18] MEDS ORDERED: Heparin 5,000 Unit/mL Inj IVPUSH PRN (21:00)
[2017-02-18] MEDS ORDERED: Heparin 5,000 Unit/mL Inj SUBQ SCH (22:00)
--- NOTE | 2017-02-18 23:00 | NUR ---
heparin Dr. Foster called and had a conversation about a heparin gtt being started then DCd at 0400, pt going at 1000 for Bx of liver, then Dr. Foster stating she wanted to just give sub q heparin. after 45mintes order for heparin gtt still in computer tried getting a hold of Dr. Foster to clarify order but unable to. called night hospitalist and received order to hold heparin gtt. [address] Foster ordered one time dose of 5000units heparin sub q, gave.
[2017-02-19] VITALS (15 sets, daily range): BP systolic 116–142; BP diastolic 58–77; PULSE 58–88; RESP 16–24; O2SAT 91–95
[2017-02-19 04:39] LABS: INR 1.32 ratio
[2017-02-19 04:47] LABS: Unsaturated Iron Binding 111.7 ug/dL
--- NOTE | 2017-02-19 05:44 | NUR ---
[facility] pt with a fever of 101.5 called and received order for 600mg PO ibuprofen one time dose, gave fever coming down to 100
[2017-02-19] MEDS: 0.9% Sodium Chloride 1,000 ML IV SCH ×2 (06:21→19:39)
[2017-02-19] MEDS: Pantoprazole 40 mg ER24 Tablet PO SCH (07:30)
[2017-02-19] MEDS: Sodium Chloride LOK Flush 10 mL Syringe IVFLUSH SCH ×3 (08:05→19:39)
--- NOTE | 2017-02-19 09:17 | NUR ---
[facility] SIgned
--- NOTE | 2017-02-19 09:19 | NUR ---
Social Work: Initial Assessment D: Per EMR review, pt is a 66 year old male admitted for Right Upper Quadrant Pain. Pt is [employer] Out of State with Medicare; pt has no LTC insurance or VA benefits. Pt does not have a PCP and is interested in an appointment at the [facility]. NOK is Sally Sanchez, , . Advanced directives info provided to pt and . Readmit score not entered at this time. FIELD HOCKEY COACH met with pt and spouse at bedside. Sw role explained and contact info provided. See initial assessment. Pt and spouse live in a single story home with 4 steps to enter, in [place]. Pt is I with ADLs at baseline and uses no DME. Pt continues to drive and has never had HH or Snf or Rehab. Pt and anticipate pt to discharge home with spouse to transport when medically stable. Pt has been I during admission and no sw needs identified at this time. A: Pt who is I at baseline. P: Anticipate pt to discharge home with no social work needs; FIELD HOCKEY COACH to continue to follow pt's clinical progress. JOELLE He Addendum: 02/19/17 at 0923 by CLEMENTE CENTENO Amended: Links added. Addendum: 02/19/17 at 1611 by CLEMENTE CENTENO [facility] Appointment set for March 02 at 3:40pm
--- NOTE | 2017-02-19 13:37 | DRSVH ---
PROCEDURE: US ABDOMEN, LIMITED ([id number]) INDICATIONS: suspected malignancy TECHNIQUE: Real-time focused scanning was performed of the abdomen, with image documentation. COMPARISON: [facility], MR, MR ABD W&WO CON, 02/17/2017, 21:27. [facility], CT, CT ABD PELVIS W CON, 02/17/2017, 19:34. [facility], US, US ABD DOPPLER, 02/17/2017, 11 :05. FINDINGS: After informed consent obtained the liver was examined sonographically and site chosen for potential tumor thrombus biopsy. Skin was prepped and draped in the usual fashion 1% Xylocaine was infiltrated from the skin down to t he hepatic capsule. The patient was unable to consistently take deep enough of a breath to visualize the left portal vein thrombus with consistency. No biopsy was performed secondary to the potential risk involved. IMPRESSION: Biopsy unable to be sonographically performed as above. Patient was recovered in the [facility] observation unit. Dr. Napier given results 1345 hrs. 02/19/2017. Dictated by: Quicny LANGFORD Interpreted: Sangeetha Pompa MD on 02/19/2017 at 13:10 Transcribed by: ARMANDO on 02/19/2017 at 13:37 Approved by: Sangeetha Pompa M.D. on 02/21/2017 at 10:10
--- NOTE | 2017-02-19 14:27 | NUR ---
[facility] PRE/POST PROCEDURE PT ARRIVED TO [facility] AT 1000 FROM 2023. QUESTIONS WERE ANSWERED RE: LIVER BX AND ULTRASOUND AT BEDSIDE. PRE HCT WAS DRAWN BY LAB. PER ALLI SANTOS THE BIOPSY WAS CANCELED AND AREA OF UPPER ABDOMEN WAS ONLY INJECTED WITH LIDOCAINE. POST COURSE PT WAS TO BE TREATED THE SAME A LIVER BX. 10LB WAS ON FOR 2 HRS AND PT WAS KEPT AT BEDREST. HCT WAS ORDERED FOR 3 HRS POST WELL. PT TAKING SOME SIPS WATER, AT BEDSIDE. REPORT CALLED TO HIPOLITO Hale RN AND PT AND HIS NURSING CARE WERE TRANSFERRED BACK TO ROOM 2023 AT 1315. RN TO RN BEDSIDE HANDOFF WAS DONE.
--- NOTE | 2017-02-19 16:11 | NUR ---
made F/U appointment at the residency clinic March 02 check in is at 3:40pm with Dr. Christine. Advised [facility].
--- NOTE | 2017-02-19 16:16 | PCM.PNMED ---
Subjective Date of Service Feb 19, 2017 Subjective Overnight: Pt had fever at 101.5 - ibuprofen given with some effect temp down to 100. No other events reported. Today: Pt awake and alert laying in bed appropriately interactive. At time of interview patient had just returned from interventional radiology where they were unable to successfully biopsy his liver mass secondary to patient not able to still his breathing cycle long enough for successful biopsy. Denies chest pain shortness of breath headache nausea vomiting. Does state he has some mild upper right quadrant pain, specifically where he received needle injections of lidocaine. Denies abdominal fluid increase in urination or lower extremity swelling. Exam Vital Signs Vital Sign - Last Date Time Temp Pulse Resp B/P Pulse Ox O2 Delivery O2 Flow Rate FiO2 02/19/17 13:00 65 23 121/60 94 Room Air 02/19/17 08:58 36.6 Intake and Output 02/18/17 02/18/17 02/19/17 Cumulative From/Thru 15:00 23:00 07:00 02/17/17 15:30 - 02/19/17 06:23 Intake Total 1564 ml 1483 ml 5469 ml Output Total 725 ml 800 ml 3875 ml Balance 839 ml 683 ml 1594 ml Intake Oral 340 ml 365 ml 2141 ml IV Total 1224 ml 1118 ml 3328 ml Output Urine Total 725 ml 800 ml 3875 ml Exam General: No acute distress, well-developed, well-nourished, appropriately interactive lying in hospital bed HEENT: Normocephalic, atraumatic. External ears without defect. Pupils equal, round, and reactive to light and accommodation. Neck: Supple with full range of motion. No jugular venous distension. Cardiovascular: Regular rate and rhythm with no murmurs, rubs, or gallops appreciated Pulmonary: Clear to auscultation bilaterally with no crackles, wheezes, or rhonchi. Normal respiratory effort with no use of accessory muscles. Abdomen: Bowel tones present. Soft to palpation 4 quadrants. Abdomen distended though patient states this is baseline. No hepatosplenomegaly or masses appreciated. No fluid wave Extremities: No clubbing, cyanosis or edema Skin: Normal temperature, turgor, and texture Neurological: Cranial nerves grossly intact. Psychiatric: Normal mood and affect. Alert and oriented to person, place, and time. IVs and Medications Medications Reviewed: Medications were reviewed in detail Lab and Diagnostics Result Diagram: 02/19/17 1420 02/18/17 0417 X-Rays, CTs and MRIs . X-RAY CHEST, TWO VIEWS IMPRESSION: 1. No acute cardiopulmonary disease. 2. Hilar calcifications present, related to remote granulomatous disease. Dictated by: Quincy LANGFORD Interpreted: Savannah Batres MD on 02/17/2017 at 15:58 CT ABDOMEN AND PELVIS WITH CONTRAST IMPRESSION: 1. Portal vein thrombosis as described above, with sparing of the right inferior hepatic branch. 2. Multifocal low density foci within the right hepatic lobe, possibly related to infarcts, abscesses, or neoplasm. 3. Cholelithiasis. 4. Remote granulomatous disease. 5. Small nonobstructing right inferior pole nephrolith. Dictated by: Benigno Camarena M.D. on 02/17/2017 at 19:47 MRI ABDOMEN WITH AND WITHOUT CONTRAST IMPRESSION: 1. As discussed above there is a high likelihood of infiltrative hepatoma involving the superior aspect of the right posterior hepatic segment with secondary tumor infiltration into the portal vein radicals in that area, and then tumor infiltration extending retrograde through these vessels into the portal vein branches more centrally. The presence of tumor infiltration is considered more likely than infection as the underlying cause due to both the elevated diffusion signal present in these areas and the enlargement of the portal veins both peripherally and centrally associated with this abnormality over a relatively wide area. If infection was present it should be clinically evident given the extent of disease found. 2. Gallstones within the gallbladder lumen present, without evidence of associated biliary obstruction or gallbladder inflammation. 3. The documentation of tumor infiltration likely could be established utilizing ultrasound guided biopsy of the left main portal vein thrombus near the liver midline, utilizing core biopsy technique or cytology aspiration. Core biopsy technique would be preferable if possible. Note: Findings called to the medical staff caring for the patient. Dictated by: Alon Ba M.D. on 02/18/2017 at 11:06 US ABDOMEN, LIMITED IMPRESSION: Biopsy unable to be sonographically performed as above. Patient was recovered in the special observation unit. Dr. Delgado given results 1345 hrs. 02/19/2017. Dictated by: Quincy LANGFORD Interpreted: Sangeetha Pompa MD on 02/19/2017 at 13: 10 Assessment & Plan is a 66 male with no reported past medical history admitted for right upper quadrant thrombosis of portal vein with mass discovered on imaging. Hospital day 3 1. Thrombosis of portal vein - Present on admission. 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 Normocytic anemia, unknown chronicity. Present admission. Ongoing -- I decreased iron, decreased TIBC, decreased percent saturation increased ferritin -- Followed with daily labs Disposition: Remain inpatient status for possible interventional radiology biopsy procedure tomorrow. If unable to biopsy patient may need to undergo surgery Pain Evaluation: Adequate Pain Control GI Prophylaxis: Proton Pump Inhibitor VTE Prophylaxis: SCDs Resuscitation Status: CPR: Attempt Resuscitation Attending Statement The patient was seen and examined together with Dr. Delgado on 02/19/2017 and I agree with the history, exam and plan as outlined in the note above. . ELSIE DELGADO DO Feb 19, 2017 15:26 Levi Ibrahim MD Feb 21, 2017 07:57
--- NOTE | 2017-02-19 18:40 | NUR ---
Activity Pt up in room independently. assisting with ADLs. He ambulated in the hallway x2. He stated, "I feel good, I kind of feel like walking around". He denies pain. RUQ is tender to palpation. Tolerating a heart healthy diet after returning to the floor.
[2017-02-20] VITALS (7 sets, daily range): BP systolic 119–158; BP diastolic 56–77; PULSE 74–95; RESP 14–22; O2SAT 91–96
--- NOTE | 2017-02-20 00:24 | NUR ---
Temp: initial assessment pt had oral temp of 37.9- pt reporting chills. Previously, pt had been given ibuprofen for temp- only Tylenol ordered. Discussed temp with Dr. Win MD reviewed labs and said okay to given Tylenol for temp. reassessment temp 37.3- pt resting comfortably. Ns infusing @100ml/hr. pt NPO after midnight for possible ultrasound guided biopsy.
[2017-02-20 04:33] LABS: BASOPHILS % (AUTO) 0.1 % (0-3); EOSINOPHILS % (AUTO) 0.1 % (0-5); MONOCYTES % (AUTO) 5.7 % (4-12); Mean Corpuscular Hemoglobin 26.9 pg (27.0-35.0); Mean Corpuscular Volume 84.4 fL (81-100); NEUTROPHILS % (AUTO) 87.1 % (40-74); Platelet Count 141 bil/L (150-400)
[2017-02-20] MEDS: Pantoprazole 40 mg ER24 Tablet PO SCH (07:58)
[2017-02-20] MEDS: Sodium Chloride LOK Flush 10 mL Syringe IVFLUSH SCH ×2 (07:59→16:30)
[2017-02-20] MEDS ORDERED: Heparin 5,000 Unit/mL Inj IVPUSH PRN (10:25)
[2017-02-20] MEDS ORDERED: Heparin 25K Unit/500mL 0.45 NS 25,000 UNIT in IV Premix 1 EACH IV SCH (10:25)
--- NOTE | 2017-02-20 14:13 | DRSVH ---
PROCEDURE: US ABDOMEN DOPPLER, LIMITED INDICATIONS: Poss Portal vein thrombus TECHNIQUE: Real-time scanning was performed of the abdominal and retroperitoneal organs, with image documentatio n. Color and pulse Doppler interrogation was also performed of the hepatic and splenic vessels, or o f the lesion of interest. COMPARISON: [facility], MR, MR ABD W&WO CON, 02/17/2017, 21:27. [facility], CT, CT ABD PELVIS W CON, 02/17/2017, 19:34. [facility], US, US ABD DOPPLER, 02/17/2017, 11 :05. FINDINGS: Doppler: The hepatic veins as well as the inferior vena cava are patent. Main portal vein is patent and there is occlusive thrombus within the right and left portal veins similar to prior MRI and ultr asound. IMPRESSION: Occlusive thrombus within the right and left portal veins similar to prior examination. Dictated by: Quincy Morales RRA Interpreted: Savannah Batres MD on 02/20/2017 at 14:11 Transcribed by: MINDA on 02/20/2017 at 14:12 Approved by: Savannah Batres MD, PhD on 02/20/2017 at 14:40
--- NOTE | 2017-02-20 15:50 | NUR ---
Plan Patient expressed frustration this morning that there had no definitive answer about what is causing his symptoms. Dr. Delgado came and explained he had consulted several other specialists and was planning to order additional tests to give more information. Abdominal Doppler ultrasound ordered and completed within a few hours. Patients expressed concern that it took so long, I explained that they have several patients to see and come as soon as they are able. I also spoke with the patients son who lives in [place], I explained the plan for further testing. When the results of the ultrasound were available Dr. Ibrahim and Dr Delgado went in and explained the options tho the patient and his . The are discussing it and will let the hospitalist team know when they have made a decision. Addendum: 02/20/17 at 1836 by HIPOLITO SHETTY RN Patient decided he would like to go home on Lovenox injections. Patient teaching done on Sub Q injections and Care notes given on lovenox. Patent states he feels confident he will be successful in treatment at home. Will follow up with surgery for possible biopsy as outpatient.
--- NOTE | 2017-02-20 17:33 | PCM.PNMED ---
Subjective Date of Service Feb 20, 2017 Subjective Overnight: No reported events, patient up around in room and in hallway. States overall he felt good. Denied any pain though still states some right upper quadrant tenderness to palpation. Today: Patient awake and alert laying in hospital bed. Somewhat frustrated regarding on expedience nature of test results regarding his possible hepatocellular carcinoma. Once again explained in detail to patient his and then followed by phone call with son possible diagnosis of hepatic vein thrombosis versus hepatocellular carcinoma. Patient seems agreeable to current plan which is subcutaneous Lovenox and one more day in the hospital with discharge home tomorrow. With follow-up Gen. surgery next week for EGD Exam Vital Signs Vital Sign - Last Date Time Temp Pulse Resp B/P Pulse Ox O2 Delivery O2 Flow Rate FiO2 02/20/17 16:40 36.7 82 18 120/56 94 Room Air Intake and Output 02/19/17 02/19/17 02/20/17 Cumulative From/Thru 15:00 23:00 07:00 02/17/17 15:30 - 02/20/17 06:29 Intake Total 1346 ml 1011 ml 7826 ml Output Total 450 ml 100 ml 4425 ml Balance 896 ml 911 ml 3401 ml Intake Oral 800 ml 213 ml 3154 ml IV Total 546 ml 798 ml 4672 ml Output Urine Total 450 ml 100 ml 4425 ml # Voids 1 1 # Bowel Movements 0 0 Exam General: No acute distress, well-developed, well-nourished, sitting up in bedside chair appropriately interactive HEENT: Normocephalic, atraumatic. External ears without defect. Pupils equal, round, and reactive to light and accommodation. Neck: Supple with full range of motion. Cardiovascular: Regular rate and rhythm with no murmurs, rubs, or gallops appreciated Pulmonary: Clear to auscultation bilaterally with no crackles, wheezes, or rhonchi. Normal respiratory effort with no use of accessory muscles. Abdomen: Bowel tones present. Soft to palpation 4 quadrants. Mildly tender to right upper quadrant Abdomen distended though patient states this is baseline. No hepatosplenomegaly or masses appreciated. No fluid wave Extremities: No clubbing, cyanosis or edema Skin: Normal temperature, turgor, and texture Neurological: Cranial nerves grossly intact. Psychiatric: Normal mood and affect. Alert and oriented to person, place, and time. IVs and Medications Medications Reviewed: Medications were reviewed in detail Lab and Diagnostics Result Diagram: 02/20/1742402/20/17424 X-Rays, CTs and MRIs . X-RAY CHEST, TWO VIEWS IMPRESSION: 1. No acute cardiopulmonary disease. 2. Hilar calcifications present, related to remote granulomatous disease. Dictated by: Quincy LANGFORD Interpreted: Savannah Batres MD on 02/17/2017 at 15:58 CT ABDOMEN AND PELVIS WITH CONTRAST IMPRESSION: 1. Portal vein thrombosis as described above, with sparing of the right inferior hepatic branch. 2. Multifocal low density foci within the right hepatic lobe, possibly related to infarcts, abscesses, or neoplasm. 3. Cholelithiasis. 4. Remote granulomatous disease. 5. Small nonobstructing right inferior pole nephrolith. Dictated by: Benigno Camarena M.D. on 02/17/2017 at 19:47 MRI ABDOMEN WITH AND WITHOUT CONTRAST IMPRESSION: 1. As discussed above there is a high likelihood of infiltrative hepatoma involving the superior aspect of the right posterior hepatic segment with secondary tumor infiltration into the portal vein radicals in that area, and then tumor infiltration extending retrograde through these vessels into the portal vein branches more centrally. The presence of tumor infiltration is considered more likely than infection as the underlying cause due to both the elevated diffusion signal present in these areas and the enlargement of the portal veins both peripherally and centrally associated with this abnormality over a relatively wide area. If infection was present it should be clinically evident given the extent of disease found. 2. Gallstones within the gallbladder lumen present, without evidence of associated biliary obstruction or gallbladder inflammation. 3. The documentation of tumor infiltration likely could be established utilizing ultrasound guided biopsy of the left main portal vein thrombus near the liver midline, utilizing core biopsy technique or cytology aspiration. Core biopsy technique would be preferable if possible. Note: Findings called to the medical staff caring for the patient. Dictated by: Alon Ba M.D. on 02/18/2017 at 11:06 US ABDOMEN, LIMITED IMPRESSION: Biopsy unable to be sonographically performed as above. Patient was recovered in the special observation unit. Dr. Delgado given results 1345 hrs. 02/19/2017. Dictated by: Quincy LANGFORD Interpreted: Sangeetha Pompa MD on 02/19/2017 at 13: 10 US ABDOMEN DOPPLER, LIMITED IMPRESSION: Occlusive thrombus within the right and left portal veins similar to prior examination. Dictated by: Quincy Morales RR Interpreted: Savannah Batres MD on 02/20/2017 at 14:11 Assessment & Plan is a 66 male with no reported past medical history admitted for right upper quadrant thrombosis of portal vein with mass discovered on imaging. Hospital day 4 1. Thrombosis of portal vein - Present on admission. 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 Normocytic anemia, unknown chronicity. Present admission. Ongoing -- I decreased iron, decreased TIBC, decreased percent saturation increased ferritin -- Followed with daily labs Disposition: Discharged home tomorrow. We will follow up with general surgery next week. Today: Interventional radiology, hematology oncology and general surgery all consult on patient. At this point is unclear if the imaging findings are secondary to a portal vein thrombosis or a possible hepatocellular carcinoma or even both. At this time we will proceed with discharge to home with Lovenox, general surgery will see patient next week for a further diagnostic EGD. Depending on results of this additional imaging may be warranted as well as biopsy of the liver in the near future. Patient again expressed concern about a second opinion from the [facility]. If patient desires this we will help in any way we can Pain Evaluation: Adequate Pain Control GI Prophylaxis: Proton Pump Inhibitor VTE Prophylaxis: SCDs Resuscitation Status: CPR: Attempt Resuscitation Attending Statement The patient was seen and examined together with Dr. Delgado on 02/20/2017 and I agree with the history, exam and plan as outlined in the note above. . ELSIE DELGADO DO Feb 20, 2017 17:33 Levi Ibrahim MD Feb 21, 2017 08:00
--- NOTE | 2017-02-20 19:43 | CCS CONS ---
[facility] [address] [place] [id number] MEDICAL ONCOLOGY NEW PATIENT REPORT PATIENT: NHUNG VELAZQUEZ : 1950 MR#: [id number] DATE: 02/17/2017 JOB ID: [id number] DATE: 02/20/2017 REQUESTING PHYSICIAN: The hospitalist team. REASON FOR CONSULT: Portal vein thrombosis with indeterminate liver lesion in the dome of the liver. HISTORY OF PRESENT ILLNESS: The patient is a 66-year-old gentleman who has been working at [employer] up until a week ago. He has been noticing for a couple of months some vague abdominal symptoms which have deteriorated over the past few weeks with nausea and poor appetite, particularly after he tries to eat. He went to Urgent Care and was sent to the hospital on February 17, after abdominal CT of abdomen and pelvis with contrast showed significant abnormalities. I was contacted today by Dr. Delgado about this patient. I have reviewed the imaging so far performed and personally discussed the imaging with Dr. Ewa Baptiste of Radiology and Quincy Morales from ultrasound regarding biopsy. The patient has no history of liver disease and no risk factors. Has no history of alcoholism. No blood transfusion, no viral hepatitis. He has had a CT scan of the abdomen and pelvis with contrast on February 17, followed by an abdominal MRI as well as an ultrasound with Doppler. All of these were reviewed. In summary, there is unequivocally a fairly large occlusive thrombus within the right and left portal veins. There is no mass in the pancreas no adenopathy in the abdomen and no ascites. His spleen is enlarged by approximately 17 cm, which might be reactive. The dome and posterior aspect of the right hepatic lobe shows some signal intensity abnormality of the parenchyma likely due to passive congestion from the portal vein thrombosis and also several ill-defined low density foci with a broad differential diagnosis which could be either infarcts or neoplastic processes. The patient has no fever to suggest abscesses. The possibility of a "hematoma" causing so-called tumor thrombus was entertained in the reading of Dr. Alon Ba of the CAT scan. However, the MRI in our review with Radiology shows no radiographic clues to suggest that. In particular, the contrast behavior of those hypodense foci in the dome of the liver do not support hepatocellular carcinoma and there is no enhancement of the thrombus in the blood vessel to suggest a tumor thrombus, although it is not entirely excluded. An ultrasound-guided biopsy from the portal vein thrombus was attempted but not performed because of this area being high on the right upper quadrant and requiring the patient to take a deep breath to move this more distally so that it can be safely biopsied and the patient would have to hold his breath for some time, which he was not able to do and biopsy from a vessel is quite challenging. The actual parenchymal lesions in the liver are not accessible due to having to go through the lung to get to them in my discussion with Interventional Radiology. PAST MEDICAL HISTORY: He has had no contact with medical care. Has no primary care and reports no serious illness before. HOME MEDICATION: None. SOCIAL HISTORY: He has been working at a [employer], at [employer], up until a week ago, and has no history of alcoholism or cigarette smoking. REVIEW OF SYSTEMS: He denies any change in his bowel habits. He has never had a colonoscopy or EGD. LABORATORY STUDIES: Showed normal electrolytes, creatinine 0.6. Normal liver enzymes. His ALT was slightly abnormal but normalized spontaneously. Albumin, however, is down to 2.4 from 2.9 upon admission. Alpha fetoprotein low normal with 0.8. Iron panel shows reactively elevated ferritin of 695 and low iron saturation of 12% consistent with anemia of chronic disease. The patient's hemoglobin upon admission was somewhat low with 10.5, currently 9.7, normal white count and platelet count 140. ALEX screen negative. Chronic hepatitis negative. On exam, he is nonjaundiced, very pleasant, in no acute distress. O2 sat 94% on room air. Blood pressure 120/56. Abdomen soft. Lungs clear to auscultation. Heart regular. No peripheral edema. ASSESSMENT/PLAN: A 66-year-old gentleman with little contact with medical care and no primary care who has been fairly healthy and has no history of any comorbidities, who came in because of increasing pain in the upper abdomen for the past week, but he has been having vague abdominal symptoms already for about two months, particularly with poor appetite and postprandial nausea and a sense of bloating. No bleeding symptoms. He has never had a colonoscopy. He has no risk factors for liver disease and his chronic hepatitis panel is negative. IMAGING: Studies have been performed with a CT scan of abdomen and pelvis with contrast, an MRI of the abdomen with contrast, hepatic protocol, and Doppler ultrasound. I was contacted about him today and reviewed the images with Radiology, Dr. Baptiste personally. He has a large occlusive portal vein thrombosis without any obvious mass lesion in the kendra hepatis or pancreas and no adenopathy, no jaundice, and fairly normal liver function tests except for hypoalbuminemia. There is some signal abnormality in the dome and posterior aspect of the right hepatic lobe, likely due to the passive congestion of the thrombus, but there are also some vague hypodense lesions in that area that are not accessible for percutaneous biopsy due to the very high location requiring transpulmonary access. At this point, there is no evidence of a malignancy and hepatocellular carcinoma appears radiographically unlikely due to the contrast behavior on MRI as well as lack of any risk factors for liver cirrhosis and a perfectly normal alpha fetoprotein. The differential diagnosis for the liver hypodensities in that dome of the liver that are in the order of around 1.5 cm could be sequelae from the portal vein thrombus versus a neoplastic process with a differential diagnosis of metastatic disease to the liver versus intrahepatic cholangiocarcinoma, although again usually cholangiocarcinomas do not result in tumor thrombus and the MRI contrast behavior does not support a tumor thrombus due to lack of enhancement of the thrombus by contrast. Biopsy has been attempted but is not feasible since the lesions are very high and the patient was not able to hold his breath long enough to get access percutaneously. Dr. Foster of surgery and myself discussed this pattern. I recommended that the patient have endoscopic evaluations with at least EGD, preferably also a colonoscopy, to rule out any primary tumor in the GI tract. CEA and CA19-9 have been ordered and are pending. I also suggested to consider a brief course of anticoagulation. We are not exactly sure about the chronicity of this clot and whether it is subacute. Anticoagulation might partially improve it and at least prevent further extension. The patient is not acutely ill so that with initiation of anticoagulation, for example with Lovenox, outpatient endoscopy can be planned or performed early next week, if he is in the hospital. Also, a laparoscopic surgical biopsy of this liver lesion from the dome of the liver is being considered by Dr. Foster of surgery as we discussed. Of note, the patient has no evidence of a myeloproliferative disorder to explain this visceral thrombus. He has rather an anemia and no polycythemia and has a non-elevated platelet and white count. Therefore, his splenomegaly is likely reactive due to the passive congestion from portal vein thrombus. The family is also, based on recommendation of their son, considering a second opinion at [facility], but that was a vague discussion within the family. Lastly, hypercoagulable state can lead to a spontaneous visceral thrombi but rather rarely. This patient has no history of DVT or PE. That could be worked up as an outpatient in regard to laboratory tests for hypercoagulable state, and would have no implication currently for the immediate management.
--- NOTE | 2017-02-20 19:59 | CONS ---
[address] [address] CONSULTATION REPORT PATIENT: NHUNG VELAZQUEZ : 1950 MR#: [id number] ADMIT: 02/17/2017 JOB ID: [id number] DATE OF SERVICE: 02/20/2017 CHIEF COMPLAINT: Abdominal pain. HISTORY OF PRESENT ILLNESS: My opinion is asked about the patient by Dr. Farzad Delgado from the hospitalist service. The patient is a previously healthy, 66-year-old man who was admitted to the hospitalist service on February 17. He has no primary care provider, no regular access to medical care. He presented to Urgent Care with, at the time, what was described as a one-week history of some nausea, poor appetite, vague abdominal pain, generalized weakness. On further detailed questioning, he has had fullness and vague discomfort in his upper abdomen for approximately two months. He denies any significant alleviating or aggravating factors. He has had no hepatotoxic exposures, no history of IV drug abuse. He only drinks 1-2 alcoholic drinks per week and was never a heavy drinker. He has not had any recent travel. His evaluation began with ultrasound of the abdomen. This was on February 17. This showed cholelithiasis. There was thrombosis of the portal veins distal to the kendra hepatis. There was a hypoechoic focus within the peripheral right hepatic lobe. He was then admitted to the hospital. A CT scan of the abdomen and pelvis was obtained with contrast. There was portal vein thrombosis with sparing of the right inferior hepatic branch. There were multiple low-density foci within the right hepatic lobe, possibly related to infarcts, abscesses, or neoplasm. There was cholelithiasis and remote granulomatous disease. There was a small right inferior kidney stone. He then had liver MRI with contrast the same day. The initial impression was read as a high likelihood of infiltrating hepatoma involving the superior posterior right hepatic lobe. Since that time, the images have been extensively reviewed within the radiology department, and there has now been an addendum by Dr. Baptiste today, favoring sequelae of portal vein thrombosis with hepatic parenchymal thrombosis, less likely hepatic tumor or metastasis. I personally reviewed those images with Dr. Baptiste, as well as Dr. Jonah Yoder from Medical Oncology for some time. Percutaneous biopsy of the area of abnormality has not been recommended. The patient has been placed on anticoagulation at this time feels somewhat better. The Doppler ultrasound was again obtained of the abdomen today showing occlusive thrombus within the right and left portal veins, similar to prior studies. The patient has never been jaundiced. He has never had upper endoscopy or colonoscopy. He has no known family history of malignancy. PAST MEDICAL HISTORY: None. PAST SURGICAL HISTORY: None. HOME MEDICATIONS: Multivitamin. ALLERGIES: No known drug allergies. SOCIAL HISTORY: He drinks 1-2 alcoholic beverages per week. Denies tobacco or illicit drug use. FAMILY HISTORY: His father had coronary artery disease, mother is alive and well in her 90s. There is no family history of malignancy. REVIEW OF SYSTEMS: A 10-point review of systems again is positive for weakness but negative for fever or chills. He has had a 10-pound weight loss from poor appetite. Denies change in color of urine or stool. PHYSICAL EXAMINATION: Body mass index 32.3, temperature 36.7, pulse 82, blood pressure 120/56, saturation 94% on room air. General: He is sitting up in a chair in no acute distress. HEENT: Sclerae are anicteric. Mucous membranes are moist. Neck: No lymphadenopathy. No jugular venous distention. Chest is clear. Heart: Regular rate and rhythm. No murmurs. Abdomen is obese, but soft, nontender, nondistended. There is no caput medusae. There is no ascites. There are no hernias. There are no palpable masses. Extremities: No edema: Neuro: No deficits. Psychiatric: Affect is appropriate. LABORATORIES: White blood cell count is 8.7, hemoglobin 9.7, hematocrit 30.4, platelets 141. Creatinine 0.60, glucose 124. Bilirubin 0.7, AST 32, ALT 41, alkaline phosphatase 158. Albumin 2.4. Alpha fetoprotein of 0.8. INR 1.32. PTT 42.2. Hepatitis C and B panels are negative. IMAGING: As described in history of present illness. ASSESSMENT AND PLAN: A 66-year-old man with portal vein thrombosis and a right posterior hepatic lobe abnormality, either representing intrahepatic portal vein thrombosis, infarction, and less likely malignancy such as hepatocellular carcinoma or intrahepatic cholangiocarcinoma. Likelihood of malignancy remains fairly low. However, he is not a candidate for percutaneous biopsy of this area. We have had a very extensive discussion with the patient, his family, his hospitalist team, Interventional Radiology, and with Medical Oncology. Recommendation at this point is to continue anticoagulation. He should have an upper endoscopy in the outpatient setting to evaluate for other evidence of upper gastrointestinal disease as a possible source of metastasis to the liver and to look for other stigmata of chronic liver disease such as esophageal varices. After upper endoscopy, and I personally would recommend repeat imaging of his liver to see if a week of anticoagulation has had any effect on the appearance in the right posterior hepatic lobe. If the area is unchanged, then I think consideration should be given to performing a laparoscopic liver biopsy. It is possible that we could get an adequate sample with just a core needle biopsy under laparoscopic guidance with frozen sections. If that was nondiagnostic, a small wedge resection could be performed as well. That would be an outpatient procedure. The patient and his family are concerned that [facility] If he is discharged and decides to pursue a 2nd opinion down there, that would be supported. Otherwise, the tentative plan will be for him to go home this weekend under the direction of the hospitalist service, and follow up with me for outpatient endoscopy, potentially on Thursday of next week. He will call my office on Thursday morning to finalize arrangements.
--- NOTE | 2017-02-20 23:56 | NUR ---
fever temp 39.4 bp 158/77 hr 95. 89% on room air. rr 20. placed on 2 liters nc. sats increased to 95%. but patient refused the oxygen and removed the nc. given tylenol as documented. patient is hot to touch alert and oriented x3 notified night resident. fela nolasco. Addendum: 02/21/17 at 0004 by AWAIS MADDOX RN received call back from night resident. notified of above. patient denies pain. denies cough. resting on left side. care ongoing. Addendum: 02/21/17 at 0105 by AWAIS MADDOX RN BLOOD CULTURE AND UA ORDERED. NOTIFIED PATIENT. TEMP 39.1. TURNED DOWN THERMOSTAT. WILL RECHECK IN ONE HOUR.
[2017-02-21] MEDS: Sodium Chloride LOK Flush 10 mL Syringe IVFLUSH SCH ×2 (01:20→10:43)
[2017-02-21 01:46] LABS: APPEARANCE,URINE CLEAR (CLEAR,HAZY); COLOR,URINE DARK YELLOW (YELLOW); OCCULT BLOOD,URINE TRACE (NEGATIVE); UROBILINOGEN,URINE >8 mg/dL (NORMAL)
[2017-02-21 04:17] VITALS: BP 121/66; PULSE 67; RESP 18; O2SAT 95
[2017-02-21 04:34] LABS: BASOPHILS % (AUTO) 0.2 % (0-3); EOSINOPHILS % (AUTO) 0 % (0-5); MONOCYTES % (AUTO) 5.8 % (4-12); Mean Corpuscular Hemoglobin 26.7 pg (27.0-35.0); Mean Corpuscular Volume 85.6 fL (81-100); NEUTROPHILS % (AUTO) 84.4 % (40-74); Platelet Count 149 bil/L (150-400)
[2017-02-21 04:42] LABS: INR 1.29 ratio
[2017-02-21 10:35] VITALS: BP 134/70; PULSE 96; RESP 17; O2SAT 95
[2017-02-21] MEDS: Pantoprazole 40 mg ER24 Tablet PO SCH (10:43)
--- NOTE | 2017-02-21 11:41 | PCM.DIMED ---
ELSIE DELGADO DO 02/21/17 1141: Discharge Instructions Date of Service Feb 21, 2017 Dates of Hospitalization Feb 17, 2017 at 13:57 Discharge Diagnosis Discharge Diagnosis 1. Thrombosis of portal vein - Possibility of underlying hepatocellular carcinoma 2. Normocytic anemia Medication Instructions You are being discharged with the medication Lovenox. This is the anticoagulation medicine for the suspected blood clot in your liver. Please continue to take this medication 2 times every day. Once in the morning and once in the evening approximately 12 hours in between doses. You are to inject 100 mg of this medication subcutaneous (under the skin) until directed otherwise. Diet No restrictions Activity No restrictions Call your provider Fever or Chills, Shortness of breath, Bleeding, Chest pain, Vomitting, Excessive diarrhea, Weakness (unilateral) Patient Instructions Wheeze called the general surgeon Dr. Berry's office this 02/23/2017 to schedule an appointment for this coming 02/25/2017 to get your upper endoscopy procedure completed. The phone number to the office is [phone] While in the hospital you had fevers at night. There is not a clear cause of these fevers though blood cultures were taken to make sure you did not have a bacterial infection. We will continue to monitor these cultures after your discharge from the hospital and we will contact you if the cultures returned with a positive result for infection. In the interim if you feel any signs of sickness such as headache, nausea, vomiting, dizziness, chest pain, shortness of breath, increased fevers, diarrhea, general weakness or tiredness. Please return to the hospital for additional evaluation Follow-up plan You will need to follow up with Dr. Marques's this coming week week for further studies. You will also need to establish care with a primary care physician. This is the number per [facility] , which you may call to set up an appointment establish care with a primary care provider. This is very important for you to do this as he will need somebody to run point position and help you navigate all the different specialties services you may have to work with in the near future. Even if this hospital visit and subsequent imaging studies and diagnostic studies show that all of this was simply because of a blood clot in your liver, you will still need a primary care provider as you are over the age of 65 and you will need somebody to partner with you in the coming years to ensure good health. Follow-up Provider: Fabio Foster MD Follow-up with PCP in: 1 week Levi Ibrahim MD 02/21/17 1637: Discharge Instructions Attending's Statement The patient was seen and examined together with Dr. Delgado on 02/21/2017 and I agree with the history, exam and plan as outlined in the note above. . ELSIE DELGADO DO Feb 21, 2017 11:41 Levi Ibrahim MD Feb 21, 2017 16:37
[2017-02-21] MEDS ORDERED: LOV100 SUBQ (11:42)
--- NOTE | 2017-02-21 11:50 | NUR ---
Social Work: Discharge Data: Pt is on day 4 of hospitalization. EMR reviewed. Pt discussed in rounds. D/C orders are in. No d/c planning needs at this time. [employer] will continue to follow if needs arise. Assessment: Pt who is independent at baseline. Plan: Pt will d/c home via POV with spouse today. No d/c planning needs at this time. [employer] will continue to follow if needs arise. JOELLE Sotelo
--- NOTE | 2017-02-21 12:20 | PCM.DC.MED ---
Discharge Summary Date of Service Feb 21, 2017 Dates of Hospitalization Date of Hospital Admission Feb 17, 2017 at 13:57 Date of Discharge: Feb 21, 2017 Providers: Admitting Physician: Tamiko Foster DO Primary Care Physician: Nopcp Attending Physician: Tamiko Foster DO Diagnosis at Time of Discharge Diagnosis at Time of Discharge 1. Thrombosis of portal vein - Possibility of underlying hepatocellular carcinoma 2. Normocytic anemia Consultations Dr. Chuck M.D., gastroenterology Dr. Cristian M.D. Gen. surgery Dr. Jany M.D. hematology oncology Procedures XRay, CTs & MRIs . X-RAY CHEST, TWO VIEWS IMPRESSION: 1. No acute cardiopulmonary disease. 2. Hilar calcifications present, related to remote granulomatous disease. Dictated by: Quincy Morales Arie Interpreted: Savannah Batres MD on 02/17/2017 at 15:58 CT ABDOMEN AND PELVIS WITH CONTRAST IMPRESSION: 1. Portal vein thrombosis as described above, with sparing of the right inferior hepatic branch. 2. Multifocal low density foci within the right hepatic lobe, possibly related to infarcts, abscesses, or neoplasm. 3. Cholelithiasis. 4. Remote granulomatous disease. 5. Small nonobstructing right inferior pole nephrolith. Dictated by: Benigno Camarena M.D. on 02/17/2017 at 19:47 MRI ABDOMEN WITH AND WITHOUT CONTRAST IMPRESSION: 1. As discussed above there is a high likelihood of infiltrative hepatoma involving the superior aspect of the right posterior hepatic segment with secondary tumor infiltration into the portal vein radicals in that area, and then tumor infiltration extending retrograde through these vessels into the portal vein branches more centrally. The presence of tumor infiltration is considered more likely than infection as the underlying cause due to both the elevated diffusion signal present in these areas and the enlargement of the portal veins both peripherally and centrally associated with this abnormality over a relatively wide area. If infection was present it should be clinically evident given the extent of disease found. 2. Gallstones within the gallbladder lumen present, without evidence of associated biliary obstruction or gallbladder inflammation. 3. The documentation of tumor infiltration likely could be established utilizing ultrasound guided biopsy of the left main portal vein thrombus near the liver midline, utilizing core biopsy technique or cytology aspiration. Core biopsy technique would be preferable if possible. Note: Findings called to the medical staff caring for the patient. Dictated by: Alon Ba M.D. on 02/18/2017 at 11:06 US ABDOMEN, LIMITED IMPRESSION: Biopsy unable to be sonographically performed as above. Patient was recovered in the special observation unit. Dr. Delgado given results 1345 hrs. 02/19/2017. Dictated by: Quincy LANGFORD Interpreted: Sangeetha Pompa MD on 02/19/2017 at 13: 10 US ABDOMEN DOPPLER, LIMITED IMPRESSION: Occlusive thrombus within the right and left portal veins similar to prior examination. Dictated by: Quincy LANGFORD Interpreted: Savannah Batres MD on 02/20/2017 at 14:11 Brief History History of present illness by Dr. Foster, Leandro.O. 02/17/2017 "Mr. Abhijeet Sanchez is a pleasant 66 yo man with particular medical follow-up who was sent to the hospital by for thrombosis of portal veins. He reports 1- week history of nausea, poor appetite, and generalized weakness. He denies any vomiting, hematemesis, melena, hematochezia, CP, SOB, dizziness, headach, fever , or chills. He has regular BM. Patient also admits to mild RUQ abdominal pain. No aggravating or relieving factor. He has never experienced anything like this in the past. Patient states that he has been pretty healthy and has not seen any doctor for years. He denies history of smoking or drug use. He drinks 1-2 beers per week. No recent blood works until today. He denies any family history of cancer. At the urgent care visit today, patient had an abdominal U/S that showed thrombosis of portal veins distal to the kendra hepatis. There is also hypoechoic irregular focus involving the peripheral right hepatic lobe. Cholelithiasis was visualized without evidence for cholecystitis. His labs were significant for low hemoglobin of 12.1. Normal platelet of 254, but prolonged PT 14.2 and INR 1.32. CMP is significant for low Na 131, AST 56, ALT 88, Alk Phos 193. Normal total bilirubin of 1.1 and normal BUN/Cr. In the room patient is saying he is hungry and would like to eat. He is not currently nauseated. He also does not have any pain currently. He states his pain is 0 out of 10 now versus then it is at its worst three out of 10. He took Tylenol at home but did not help. Patient is admitted to the [facility] team for portal vein thrombosis likely secondary to hepatitis versus hepatocellular carcinoma." Hospital Course is a 66 male with no reported past medical history admitted for right upper quadrant thrombosis of portal vein with mass discovered on imaging. Throughout hospital course remained inconclusive if patient was suffering from portal vein thrombosis or possible carcinoma. Eventually it was decided that continued follow-up is warranted with additional studies starting with an EGD by general surgery approximately 4 days after discharge 1. Thrombosis of portal vein - Present on admission. Ongoing - Possible hepatocellular carcinoma - As seen on imaging as above - Possible infiltrative hepatoma secondary to tumor infiltration into the portal vein - GI consult - Oncology consult - General surgery consult - Interventional radiology consult - Unable to obtain fine-needle biopsy - Hepatitis panel negative, tumor marker AFP negative, ALXE negative - CA 19-9 antigen negative - Carcinoembryonic antigen negative - Patient discharged on Lovenox 100 mg twice a day, will continue this medication until instructed to discontinue its use -Close follow-up with general surgery 2. Normocytic anemia, unknown chronicity. Present admission. Ongoing -- Decreased iron, decreased TIBC, decreased percent saturation increased ferritin -- Followed with daily labs - Recommend outpatient follow-up Exam Vital Signs (Last) Date Time Temp Pulse Resp B/P Pulse Ox O2 Delivery O2 Flow Rate FiO2 02/21/17 10:35 36.7 96 17 134/70 95 Room Air 02/20/17 23:28 2.00 Exam General: No acute distress, well-developed, well-nourished, laying in hospital bed, appropriately interactive HEENT: Normocephalic, atraumatic. External ears without defect. Pupils equal, round, and reactive to light and accommodation. Neck: Supple with full range of motion. Cardiovascular: Regular rate and rhythm with no murmurs, rubs, or gallops appreciated Pulmonary: Clear to auscultation bilaterally with no crackles, wheezes, or rhonchi. Normal respiratory effort with no use of accessory muscles. Abdomen: Bowel tones present. Soft to palpation 4 quadrants. Mildly tender to right upper quadrant, states improved from yesterday Abdomen distended though patient states this is baseline. Extremities: No clubbing, cyanosis or edema Skin: Normal temperature, turgor, and texture Neurological: Cranial nerves grossly intact. Psychiatric: Normal mood and affect. Alert and oriented to person, place, and time. Test 4/25/17 15:15 02/17/17 22:49 02/18/17 04:17 02/19/17 03:55 Magnesium Level 2.0mg/dL (1.6-2.6) Gamma Glutamyl Transpeptidase 128IU/L (0-65) Troponin T < 0.010ug/L (0.0-0.011) Amylase Level 27U/L (28-100) Lipase 20U/L (13-60) Anti-Nuclear Antibody Screen Negative (Negative) Hepatitis A IgM Antibody Negative (Negative) Hepatitis B Surface Antigen Negative (Negative) Hepatitis B Core IgM Antibody Negative (Negative) Hepatitis C Antibody <0.1s/co ratio (0.0-0.9) Hepatitis C Comment Comment (.) Hold Calabrese Top Tube Received (Received) Triglycerides Level 98mg/dL (0-149) Cholesterol Level 77mg/dL (100-199) LDL Cholesterol, Calculated 48.400mg/dL (0-99) VLDL Cholesterol 19.600mg/dL HDL Cholesterol 9mg/dL (>39) Cholesterol/HDL Ratio 8.56 (0.0-4.4) Tumor Marker Alpha Fetoprotein 0.8ng/mL (0.0-8.3) Iron Level 15ug/dL (35-150) Total Iron Binding Capacity 127ug/dL (250-450) Percent Iron Saturation 12%sat (15-50) Unsaturated Iron Binding 111.7ug/dL Ferritin 695ng/mL (30-400) Test 02/20/17 04:25 02/20/17 22:30 02/21/17 01:30 02/21/17 04:00 Carcinoembryonic Antigen 1.9ng/mL (0.0-4.7) CA 19-9 Antigen 10U/mL (0-35) Activated Partial Thromboplast Time 38.6sec (22.8-33.0) Urine Color Dark yellow (YELLOW) Urine Appearance Clear (CLEAR,HAZY) Urine pH 6.0 (5.0-8.0) Urine Specific [place] 1.020 (1.003-1.035) Urine Protein Tracemg/dL (NEG,TRACE) Urine Glucose (UA) Negativemg/dL (NEGATIVE) Urine Ketones 15mg/dL (NEGATIVE) Urine Occult Blood Trace (NEGATIVE) Urine Nitrite Negative (NEGATIVE) Urine Bilirubin Negative (NEGATIVE) Urine Urobilinogen >8mg/dL (NORMAL) Urine Leukocyte Esterase Negative (NEGATIVE) Urine RBC 0-2/hpf (0-2) Urine WBC 0-5/hpf (0-5) Urine Epithelial Cells Occasional/hpf (NONE-MOD) Urine Crystals Amorphous urates (NONE Urine Bacteria None/hpf (NONE-FEW) Urine Hyaline Casts None/lpf (NONE) Urine Granular Casts None seen (NONE SEEN) Urine Waxy Casts None seen (NONE SEEN) Urine Red Blood Cell Casts None seen (NONE SEEN) Urine White Blood Cell Casts None seen (NONE SEEN) Urine Mucus Present (None Seen) Urine Trichomonas None seen (NONE SEEN) Urine Yeast None (NONE SEEN) Urinalysis Comment None Urine Culture Reflexed Not indicated White Blood Count 10.9th/mm3 (3.8-10.1) Red Blood Count 3.67mil/mm3 (4.40-5.80) Hemoglobin 9.8g/dL (13.8-17.2) Hematocrit 31.4% (41.0-50.0) Mean Corpuscular Volume 85.6fL (81-100) Mean Corpuscular Hemoglobin 26.7pg (27.0-35.0) Mean Corpuscular Hemoglobin Concent 31.2% (32.0-37.0) Red Cell Distribution Width 15.3% (12.3-15.4) Platelet Count 149bil/L (150-400) Neutrophils (%) (Auto) 84.4% (40-74) Lymphocytes (%) (Auto) 9.3% (14-46) Monocytes (%) (Auto) 5.8% (4-12) Eosinophils (%) (Auto) 0% (0-5) Basophils (%) (Auto) 0.2% (0-3) Prothrombin Time 13.9sec (8.1-12.5) Prothromb Time International Ratio 1.29ratio Sodium Level 137mEq/L (134-144) Potassium Level 3.5mEq/L (3.5-5.2) Chloride Level 98mEq/L (97-108) Carbon Dioxide Level 25mmol/L (18-29) Blood Urea Nitrogen 11mg/dL (8-27) Creatinine 0.83mg/dL (0.76-1.27) Estimat Glomerular Filtration Rate 99mL/min (>59) Glucose Level 131mg/dL (60-99) Calcium Level 8.1mg/dL (8.5-10.1) Total Bilirubin 0.8mg/dL (0.0-1.2) Aspartate Amino Transf (AST/SGOT) 36U/L (0-50) Alanine Aminotransferase (ALT/SGPT) 41U/L (0-44) Alkaline Phosphatase 162U/L (25-160) Total Protein 6.0g/dL (6.4-8.4) Albumin 2.4g/dL (3.4-5.0) Procalcitonin 1.67ng/mL (0.00-0.08) Microbiology Results Blood cultures negative 2 days, additional blood cultures pending Discharge Medications Discharge Medications Enoxaparin (Lovenox) 100 Mg/Ml Syringe 100 MG SUBQ Q12 Prescribed by: ELSIE DELGADO, Multivitamin (Multivitamins) 1 Each Capsule 1 EACH PO DAILY (Reported) Additional med instructions You are being discharged with the medication Lovenox. This is the anticoagulation medicine for the suspected blood clot in your liver. Please continue to take this medication 2 times every day. Once in the morning and once in the evening approximately 12 hours in between doses. You are to inject 100 mg of this medication subcutaneous (under the skin) until directed otherwise. Followup Plan Disposition: Discharged to home in stable condition with instructions on when and wide to return to the hospital specifically if any sign of infection presents Follow-up plan You will need to follow up with Dr. Marques's this coming week week for further studies. You will also need to establish care with a primary care physician. This is the number per [facility] , which you may call to set up an appointment establish care with a primary care provider. This is very important for you to do this as he will need somebody to run point position and help you navigate all the different specialties services you may have to work with in the near future. Even if this hospital visit and subsequent imaging studies and diagnostic studies show that all of this was simply because of a blood clot in your liver, you will still need a primary care provider as you are over the age of 65 and you will need somebody to partner with you in the coming years to ensure good health. Discharge Diet: No restrictions Discharge Activity: No restrictions Patient Instructions Wheeze called the general surgeon Dr. Berry's office this 02/23/2017 to schedule an appointment for this coming 02/25/2017 to get your upper endoscopy procedure completed. The phone number to the office is [phone] While in the hospital you had fevers at night. There is not a clear cause of these fevers though blood cultures were taken to make sure you did not have a bacterial infection. We will continue to monitor these cultures after your discharge from the hospital and we will contact you if the cultures returned with a positive result for infection. In the interim if you feel any signs of sickness such as headache, nausea, vomiting, dizziness, chest pain, shortness of breath, increased fevers, diarrhea, general weakness or tiredness. Please return to the hospital for additional evaluation Follow-up Provider: Fabio Foster MD Follow-up with PCP in: 1 week Time spent Greater than 30 minutes was spent in preparation of discharge with greater than 50% of that time dedicated to patient counseling and coordination of care. . Attending Statement The patient was seen and examined together with Dr. Delgado on 02/21/2017 and I agree with the history, exam and plan as outlined in the note above. . copies to: Fabio Foster MD, GILES A DO Feb 21, 2017 12:20 Levi Ibrahim MD Feb 21, 2017 16:51
--- NOTE | 2017-02-21 13:34 | NUR ---
Patient & Multidisciplinary Communication, Discharge About 0800 this morning spoke with patient about getting him his morning medications and performing his assessments. He requested that this nurse wait so his could be present for Lovenox injection teaching. His arrived and at about 1045 his vitals were taken and medications given. Did Lovenox injection training with both he and his . Answered their questions. He told this nurse that he had a diarrhea accident in his pants and had been feeling nauseated, but was feeling good now. He said he thought he ate something that didn't sit with his intestines well. Shortly after Dr. Ibrahim and Dr. Delgado came in the room and spoke with them about his condition, his temperatures, nausea/diarrhea, and discharge planning for today. Both he and his agreed to being discharged today, following-up with Dr. Foster, getting an appointment with a Primary Care Physician, and coming back into the ED if he started to feel unwell or present more fevers or diarrhea. His IV was discontinued intact (the dressing had to be changed twice due to the first one becoming saturated with blood). Called [facility] to confirm they had Lovenox available for his prescription pick-up. Discussed and gave them his discharge paperwork (care notes, prescription, instructions). They thanked staff for their care. He was wheeled to his car where his picked him up with all his belongings. He left at 1300.
== END 2017-02-21 13:00 | disposition home or self-care (01) | DRG 442 ==
LOC: PCC 13:57
PROVIDERS: ADMIT Family Medicine; ATTEND Family Medicine
DX: I81 Portal vein thrombosis (principal); C22.0 Liver cell carcinoma; D64.9 Anemia, unspecified

== ENCOUNTER 2017-02-25 13:05 | Day surgery (SDC) | payer OTHER, MEDICARE ==
[~2017-02-25] VITALS: Ht 177.8 cm; Wt 102.1 kg
[~2017-02-25 13:05] MED LIST: LOV100 SUBQ; MULT1CAP33 PO
[2017-02-25 14:22] VITALS: BP 134/64; PULSE 83; RESP 15; O2SAT 95
[2017-02-25] MEDS ORDERED: fentaNYL-PF 50 mCg/mL 2 mL Inj ONE (14:33)
[2017-02-25] MEDS ORDERED: fentaNYL-PF 50 mCg/mL 2 mL Inj IVPUSH PRN (14:40)
[2017-02-25] MEDS ORDERED: Sodium Chloride LOK Flush 10 mL Syringe IV PRN (14:40)
[2017-02-25] MEDS: 0.9% Sodium Chloride 1,000 ML IV PRN ×2 (14:56→15:13)
[2017-02-25 15:19] VITALS: BP 116/66; PULSE 83; RESP 16; O2SAT 92
[2017-02-25 15:26] VITALS: BP 110/61; PULSE 79; RESP 16; O2SAT 92
[2017-02-25 15:29] VITALS: BP 114/71; PULSE 97; RESP 16; O2SAT 92
--- NOTE | 2017-02-25 19:00 | ENDO ---
[address] [address] ENDOSCOPY PROCEDURE PATIENT: NHUNG VELAZQUEZ : 1950 MR#: [id number] ADMIT: 02/25/2017 JOB ID: [id number] DATE: 02/25/2017 PREPROCEDURE DIAGNOSIS: Liver mass. POSTPROCEDURE DIAGNOSES: 1. Liver mass. 2. Sigmoid diverticulosis. 3. Cecal polyp. 4. Hemorrhoids. PROCEDURE: 1. Esophagogastroduodenoscopy. 2. Colonoscopy with biopsies. ENDOSCOPIST: Dr. Fabio Foster. MEDICATIONS: 1. Versed 6 mg. 2. Fentanyl 150. INDICATIONS: The patient is a 66-year-old man who was admitted to the hospital last week and found to have portal vein thrombosis. He had a mass-like appearance in the right posterior-superior hepatic lobe. This could not be biopsied percutaneously. It was felt that this was most likely consistent with intrahepatic portal vein thrombosis, but underlying malignancy could not be ruled out. He has never undergone previous endoscopic evaluation. Because of the possibility of underlying malignancy, informed consent was obtained for upper endoscopy and colonoscopy with biopsies, as well as to look for stigmata of cirrhosis and chronic liver disease. FINDINGS: There was no evidence of stigmata of chronic liver disease. There were no esophageal varices. Upper endoscopy was normal except for a small bluish area in the second portion of the duodenum, which may have been a thrombosed vessel. Colonoscopy showed fairly extensive sigmoid diverticulosis. There was a 2-3 mm polyp in the cecum. There were internal hemorrhoids, but no other abnormalities. DESCRIPTION OF PROCEDURE: Procedural sedation was achieved. The patient was connected to hemodynamic monitoring, pulse oximetry, capnography. A bite block was placed. The GIF H 180 J gastroscope was passed through the mouth under visualization to the level of the second portion of the duodenum. In the second portion of the duodenum, there was a small bluish area which may have been an external thrombosed vessel either in the kendra hepatis or potentially what could be the portal vein. A biopsy was not taken from this area. The stomach was normal. There were no gastric or esophageal varices. There was no gastroenteropathy. The esophagogastric junction was at 42 cm from the incisors. The remainder of the esophagus was normal. Limited view of the larynx was normal. The scope was withdrawn and the upper endoscopy was terminated. Digital rectal exam was then performed. The PCF H 180 AL colonoscope was then inserted and had passed under visualization until the ileocecal valve and appendiceal orifice were visualized and photo documented. There is a 2-3 mm flat polyp in the cecum which was removed with cold forceps and sent for permanent pathology. The scope was then withdrawn and retroflexed in the rectum. There were fairly extensive sigmoid diverticula, but no other mucosal abnormalities were identified. Retroflexion revealed moderate internal hemorrhoids. The scope was withdrawn and the procedure terminated. RECOMMENDATIONS: We will plan to repeat a CT scan of the liver with liver protocol early next week. If the appearance of the liver is relatively unchanged, then most likely will make arrangements for a laparoscopic liver biopsy.
--- NOTE | 2017-02-27 17:46 | PATH ---
SURGICAL PATHOLOGY Attending Physician:Eleuterio Kwong CASE STATUS: Signed Out PATIENT NAME: NUHNG VELAZQUEZ PID: [id number] : 1950 DATE COLLECTED:02/25/2017 00:00 SPECIMEN: Colon, Biopsy CLINICAL HISTORY: 1. CECAL POLYP FINAL DIAGNOSIS: Cecum, Polyp, Biopsy: Portions of tubular adenoma x 2; negative for high-grade dysplasia. ICD10: K63.5 GROSS DESCRIPTION: The specimen is received in one formalin filled container labeled with the patient's name, sublabeled "cecal polyp" and consists of 2 portions of tissue which aggregate to 0.3 x 0.3 x 0.2 CM. The specimen is entirely submitted in one cassette. 02/26/2017 [facility] ICD-9 CODES: CPT CODES: 1: 78295 Electronically Signed Out Nicolle Marie MD [facility] Pathology [facility] [address], [place] [address] Technical component performed at [facility], [facility] [address], [place], [address]
== END 2017-02-25 23:59 | disposition home or self-care (01) ==
LOC: END 13:05
PROVIDERS: ATTEND Student in an Organized Health Care Education/Training Program
DX: R16.0 Hepatomegaly, not elsewhere classified (principal); K57.30 Diverticulosis of large intestine without perforation or abscess without bleeding; D12.0 Benign neoplasm of cecum; K64.9 Unspecified hemorrhoids; I81 Portal vein thrombosis
CPT/HCPCS: 43235; 45380; 99153; G0500; J2250; J3010; J7030